=== PATIENT | male | born 1940 | race Caucasian/White ===

== ENCOUNTER 2016-12-02 08:08 | Inpatient (IN) | payer MEDICARE ==
[2016-12-02] VITALS (15 sets, daily range): BP systolic 93–173; BP diastolic 48–104; PULSE 64–135; RESP 16–20; TEMP 98.1–99.7; O2SAT 88–98
[~2016-12-02] VITALS: Ht 190.5 cm; Wt 71.7 kg
[~2016-12-02 08:08] MED LIST: ASPI81TA19; COUM3TAB PO; DOCU1CAP39 PO; FINA5TAB2 PO; FURO20TA PO; LORA-392 PO; METO25TA3 PO; MILKSUS PO; MULT-135 PO; PANT40TA3 PO; POTASSIUM PO; TAMS0.4C4 PO; VITATAB43 PO; ZANT150T2 PO; ZOCO40TA PO
--- NOTE | 2016-12-02 08:27 | PD ---
HPI Chief Complaint: shortness of breath Time Seen by Provider: 08:21 Travel History International Travel<30 days: No Contact w/Intl Traveler<30days: No Traveled to known affect area: No History of Present Illness HPI 76-year-old male with history of atrial fibrillation, CHF, CAD status post CABG , presents to the ER today because he has had 3 days history of coughing, shortness of breath, chest discomfort. He denies any fevers, vomiting, chest pains, or any other symptoms. He states that he thinks that he may be building up fluid again. He states symptoms worsens with exertion. He also states that he feels like his heart rate has been up. Modifying Factors: None Associated Signs & Symptoms: Coughing, shortness of breath, chest discomfort Risk Factors: A. fib PFSH Past Medical History Hx Anticoagulant Therapy: Yes Heart Rhythm Problems: Yes (Hx. Afib) Cancer: No Cardiovascular Problems: Yes High Cholesterol: Yes Diminished Hearing: No Endocrine: No Gastrointestinal Disorders: No Genitourinary: Yes (chronic prostatitis) Hypertension: Yes Immune Disorder: No Implanted Vascular Access Dvce: No Musculoskeletal: No Neurologic: No Psychiatric: No Reproductive: No Respiratory: Yes Past Surgical History Cardiac Surgery: Yes (CABG X2 & AVR) Coronary Artery Bypass Graft: Yes (DOUBLE) Oral Surgery: Yes (BONE GRAFT) Other Surgery: Yes Social History Alcohol Use: No Tobacco Use: No Substance Use: No Allergies-Medications (Allergen,Severity, Reaction): Coded Allergies: Codeine (Verified Adverse Reaction, Severe, N/V, 12/02/16) Reported Meds & Prescriptions Reported Meds & Active Scripts Active Metoprolol Tartrate 25 Mg Tab 25 Mg PO Q12HR Tamsulosin (Tamsulosin HCl) 0.4 Mg Cap 0.4 Mg PO HS Zocor (Simvastatin) 40 Mg Tab 40 Mg PO DAILY Ativan (Lorazepam) 0.5 Mg Tab 0.5 Mg PO TID PRN Furosemide 20 Mg Tab 20 Mg PO BID Pantoprazole (Pantoprazole Sodium) 40 Mg Tab 40 Mg PO DAILY@06 Milk of Magnesia Liq (Magnesium Hydroxide) 400 Mg/5 Ml Susp 30 Ml PO DAILY PRN Dok (Docusate Sodium) 100 Mg Cap 100 Mg PO BID Reported Probiotic (Lactobacillus Acidophilus) 1 Cap Cap 1 Cap PO DAILY Diltiazem (Diltiazem HCl) 30 Mg Tab 30 Mg PO TID Warfarin 4 Mg Tab 8 Mg PO DAILY Potassium Chloride ER (Potassium Chloride) 10 Meq Cap 10 Meq PO BID Buspirone (Buspirone HCl) 5 Mg Tab 5 Mg PO BID PRN Vitamin H88-[id number] Acid (Cobalamine Combinations) 500-400 Mcg Tab 1 Tab PO DAILY Finasteride 5 Mg Tab 5 Mg PO DAILY Do not crush. Aspir-Low (Aspirin) 81 Mg Tabdr Zantac (Ranitidine HCl) 150 Mg Tab 75 Mg PO BID Multi Vitamin (Multiple Vitamin) 1 Tab Tab 1 Tab PO DAILY Review of Systems Except as stated in HPI: all other systems reviewed are Neg Physical Exam Narrative GENERAL: Well-developed elderly white male in no acute distress at rest. Awake , alert, oriented 3. SKIN: Warm and dry. HEAD: Atraumatic. Normocephalic. EYES: Pupils equal and round. No scleral icterus. No injection or drainage. ENT: No nasal bleeding or discharge. Mucous membranes pink and moist. NECK: Trachea midline. No JVD. CARDIOVASCULAR: Fast and irregularly irregular. No rubs, murmurs, or gallops. RESPIRATORY: No accessory muscle use. Decreased at the bases with notable crackle to the right base. Breath sounds equal bilaterally. No wheezes. GASTROINTESTINAL: Abdomen soft, non-tender, nondistended. Hepatic and splenic margins not palpable. MUSCULOSKELETAL: No obvious deformities. No clubbing. No cyanosis.. Trace bilateral lower extremity edema. NEUROLOGICAL: Awake and alert. No obvious cranial nerve deficits. Motor grossly within normal limits. Normal speech. PSYCHIATRIC: Appropriate mood and affect; insight and judgment normal. Data Data Last Documented VS Vital Signs Date Time Temp Pulse Resp B/P Pulse Ox O2 Delivery O2 Flow Rate FiO2 12/02/16 09:30 128 16 173/85 95 Nasal Cannula 2 12/02/16 08:27 98.1 Orders Complete Blood Count With Diff (12/02/16 08:21) Comprehensive Metabolic Panel (12/02/16 08:21) B-Type Natriuretic Peptide (12/02/16 08:21) Act Partial Throm Time (Ptt) (12/02/16 08:21) Prothrombin Time / Inr (Pt) (12/02/16 08:21) Ckmb (Isoenzyme) Profile (12/02/16 08:21) Troponin I (12/02/16 08:21) Iv Access Insert/Monitor (12/02/16 08:21) Ecg Monitoring (12/02/16 08:21) Oximetry (12/02/16 08:21) Oxygen Administration (12/02/16 08:21) Chest, Single Ap (12/02/16 08:21) Sodium Chloride 0.9% Flush (Ns Flush) (12/02/16 08:30) Diltiazem Inj (Cardizem Inj) (12/02/16 08:30) Diltiazem Inj (Cardizem Inj) (12/02/16 08:30) Sodium Chloride 0.9% Flush (Ns Flush) (12/02/16 08:30) CKMB (12/02/16 08:25) CKMB% (12/02/16 08:25) Furosemide Inj (Lasix Inj) (12/02/16 09:00) Labs Laboratory Tests Test 12/02/16 08:25 White Blood Count 7.0 TH/MM3 Red Blood Count 4.51 MIL/MM3 Hemoglobin 12.6 GM/DL Hematocrit 37.5 % Mean Corpuscular Volume 83.2 FL Mean Corpuscular Hemoglobin 28.0 PG Mean Corpuscular Hemoglobin 33.6 % Concent Red Cell Distribution Width 14.6 % Platelet Count 274 TH/MM3 Mean Platelet Volume 6.5 FL Neutrophils (%) (Auto) 66.1 % Lymphocytes (%) (Auto) 15.5 % Monocytes (%) (Auto) 13.2 % Eosinophils (%) (Auto) 5.0 % Basophils (%) (Auto) 0.2 % Neutrophils # (Auto) 4.6 TH/MM3 Lymphocytes # (Auto) 1.1 TH/MM3 Monocytes # (Auto) 0.9 TH/MM3 Eosinophils # (Auto) 0.4 TH/MM3 Basophils # (Auto) 0.0 TH/MM3 CBC Comment DIFF FINAL Differential Comment Prothrombin Time 27.7 SEC Prothromb Time International 2.4 RATIO Ratio Activated Partial 42.9 SEC Thromboplast Time Sodium Level 128 MEQ/L Potassium Level 3.5 MEQ/L Chloride Level 88 MEQ/L Carbon Dioxide Level 30.3 MEQ/L Anion Gap 10 MEQ/L Blood Urea Nitrogen 11 MG/DL Creatinine 0.80 MG/DL Estimat Glomerular Filtration 94 ML/MIN Rate Random Glucose 123 MG/DL Calcium Level 8.8 MG/DL Total Bilirubin 0.6 MG/DL Aspartate Amino Transf 35 U/L (AST/SGOT) Alanine Aminotransferase 27 U/L (ALT/SGPT) Alkaline Phosphatase 131 U/L Total Creatine Kinase 170 U/L Creatine Kinase MB 3.8 NG/ML Troponin I 0.02 NG/ML B-Type Natriuretic Peptide 335 PG/ML Total Protein 8.7 GM/DL Albumin 3.4 GM/DL MDM Medical Decision Making Medical Screen Exam Complete: Yes Emergency Medical Condition: Yes Medical Record Reviewed: Yes Interpretation(s) EKG shows A. fib with rapid ventricular response at a rate of 136 bpm. Laboratory Tests Test 12/02/16 08:25 Hemoglobin 12.6 GM/DL (13.0-17.0) Hematocrit 37.5 % (39.0-51.0) Mean Platelet Volume 6.5 FL (7.0-11.0) Monocytes (%) (Auto) 13.2 % (0.0-8.0) Eosinophils (%) (Auto) 5.0 % (0.0-4.0) Prothrombin Time 27.7 SEC (9.8-11.6) Activated Partial 42.9 SEC Thromboplast Time (24.3-30.1) Sodium Level 128 MEQ/L (136-145) Chloride Level 88 MEQ/L (98-107) Random Glucose 123 MG/DL (74-106) Alkaline Phosphatase 131 U/L (45-117) Creatine Kinase MB 3.8 NG/ML (0.5-3.6) B-Type Natriuretic Peptide 335 PG/ML (0-100) Total Protein 8.7 GM/DL (6.4-8.2) Differential Diagnosis Cough, shortness of breath, chest discomfortdysrhythmias versus ACS versus CHF versus metabolic issues versus dehydration versus pneumonia Narrative Course BNP is elevated. Chest x-ray shows left-sided pleural effusions. Patient was given Lasix in the ER for underlying CHF. His heart rate is in the 140s in the ER and Cardizem IV bolus with drip was given in the ER for better rate control. His heart rate went down to the 100s initially. However, when he tried to get up, his heart rate went back up into the 140s. At this point, patient states that Dr. Wright who is his ibm bpm developer has been trying to break control him and has changes medication several times over the last few weeks. Considering he is more symptomatic now, My plan would be to admit him for further treatment of his CHF, pleural effusion, and A. fib with RVR. Case is discussed with Dr. King for admission. Diagnosis Primary Impression: Atrial fibrillation with RVR Additional Impression: CHF (congestive heart failure) Admitting Information Admitting Physician Requests: Admit Esteban Borges MD Dec 02, 2016 08:27
[2016-12-02] MEDS ORDERED: DILTIAZEM HCL 25 MG/5 ML VIAL IV PUSH ONE (08:30)
[2016-12-02] MEDS ORDERED: SODIUM CHLORIDE 0.9% FLUSH 5 ML FLUSH IVF PRN (08:30)
[2016-12-02 08:35] LABS: AUTOMATED NEUTROPHIL # 4.6 TH/MM3 (1.8-7.7); BASOPHIL % 0.2 % (0.0-2.0); EOSINOPHIL # 0.4 TH/MM3 (0-0.4); HEMATOCRIT 37.5 % (39.0-51.0); HEMO FLAGS DIFF FINAL; LYMPH % 15.5 % (9.0-44.0); LYMPHOCYTE # 1.1 TH/MM3 (1.0-4.8); MEAN CELL VOLUME 83.2 FL (80.0-100.0); MEAN CORPUSCULAR HGB CONC 33.6 % (32.0-36.0); MONO % 13.2 % (0.0-8.0); NEUT % 66.1 % (16.0-70.0); PLATELET COUNT 274 TH/MM3 (150-450); RED BLOOD COUNT 4.51 MIL/MM3 (4.50-5.90); RED CELL DISTRIBUTION WIDTH 14.6 % (11.6-17.2)
[2016-12-02 08:44] LABS: CHLORIDE 88 MEQ/L (98-107); POTASSIUM 3.5 MEQ/L (3.5-5.1); SODIUM (NA) 128 MEQ/L (136-145)
[2016-12-02 08:48] LABS: ANION GAP 10 MEQ/L (5-15); BICARBONATE 30.3 MEQ/L (21.0-32.0); BLOOD UREA NITROGEN 11 MG/DL (7-18)
[2016-12-02] MEDS: SODIUM CHLORIDE 0.9% FLUSH 5 ML FLUSH IVF PRN ×2 (08:48→09:16)
[2016-12-02 08:49] LABS: APTT (PATIENT) 42.9 SEC (24.3-30.1); INTERNATIONAL NORMALIZED RATIO 2.4 RATIO; PROTHROMBIN TIME - PATIENT 27.7 SEC (9.8-11.6)
[2016-12-02 08:51] LABS: ALT (GPT) 27 U/L (12-78); AST (GOT) 35 U/L (15-37); GLOMERULAR FILTRATION RATE 94 ML/MIN (>89)
[2016-12-02 08:53] LABS: TOTAL BILIRUBIN ADULT 0.6 MG/DL (0.2-1.0)
[2016-12-02 08:54] LABS: ALKALINE PHOSPHATASE 131 U/L (45-117); CREATINE KINASE 170 U/L (39-308)
[2016-12-02] MEDS ORDERED: FUROSEMIDE 40 MG/4 ML VIAL IV PUSH ONE (09:00)
[2016-12-02] MEDS ORDERED: DILT30TA PO (09:06)
[2016-12-02] MEDS ORDERED: BUSP5TAB PO (09:06)
[2016-12-02] MEDS ORDERED: WARF-20 PO (09:06)
[2016-12-02] MEDS ORDERED: POTA10CA PO (09:06)
[2016-12-02 09:07] LABS: CKMB 3.8 NG/ML (0.5-3.6)
--- NOTE | 2016-12-02 09:07 | RADHPO ---
EXAM DATE/TIME: 12/02/2016 08:39 [facility] COMPARISON: CT THORAX W/O CONTRAST, September 12, 2016, 11:05. CHEST SINGLE AP, September 14, 2016, 4:41. INDICATIONS : Short of breath, cough, fever MEDICAL HISTORY : Myocardial infarction. SURGICAL HISTORY : CABG. ENCOUNTER: Initial ACUITY: 4 - 6 days PAIN SCORE: 0/10 LOCATION: Bilateral chest FINDINGS: The patient is status post sternotomy. The heart size is normal. There is increased density at the le ft upper lung and at the left base. The right lung is clear. There is a mild left effusion. CONCLUSION: Patchy areas of consolidation or atelectasis in the left upper lung and left lower lung with a mild l eft effusion. Robert Salinas MD on December 02, 2016 at 9:03 Board Certified Radiologist. This report was verified electronically.
[2016-12-02] MEDS ORDERED: LACTCAP8 PO (09:08)
[2016-12-02] MEDS: DILTIAZEM INJ 125 MG in SODIUM CHLORIDE 0.9% INJ 100 ML IV SCH ×2 (09:11→16:39)
[2016-12-02] MEDS ORDERED: busPIRone HCL 5 MG TAB PO PRN (10:30)
[2016-12-02] MEDS ORDERED: SODIUM CHLORIDE 0.9% FLUSH 5 ML FLUSH FLUSH PRN (10:30)
--- NOTE | 2016-12-02 17:52 | HHI.HP ---
HPI Service [facility] Hospitalists Primary Care Physician Liane Andino MD Admission Diagnosis CHF exacerbation/A. fib with RVR Diagnoses: Chief Complaint: Shortness of breath Weight gain Palpitations Travel History International Travel<30 Days: No Contact w/Intl Traveler <30 Da: No Traveled to Known Affected Are: No History of Present Illness This is a 76-year-old male medical history significant for coronary artery disease status post previous CABG and aortic valve replacement, hypertension, CHF and atrial fibrillation who presents to [facility] ED with complaints of worsening shortness of breath and cough 3 days. Patient denies any complaints of fever, chills, nausea, vomiting, chest pain or abdominal pain. He denies any hematuria or dysuria. He denies any hematochezia or melena. He does report 3 pound weight gain over the past several days. He admits that he' s had a very difficult time controlling his heart rate ever since he had his open heart surgery and was recently started on diltiazem 30 mg 3 times a day in addition to his previously prescribed metoprolol. He does complain of palpitations. States that his shortness of breath is worse with activity. He' s been taking the Lasix every 3 days as instructed by his physician. Review of Systems Constitutional: COMPLAINS OF: Weight gain (3 pounds in the last 2-3 days), DENIES: Diaphoretic episodes, Fever, Chills Endocrine: DENIES: Polydipsia Eyes: DENIES: Blurred vision, Eye pain Ears, nose, mouth, throat: DENIES: Throat pain, Ear Pain, Running Nose Respiratory: COMPLAINS OF: Cough (as stated in history of present illness), Shortness of breath (3 days), DENIES: Hemoptysis, Sputum production Cardiovascular: COMPLAINS OF: Palpitations, Dyspnea on Exertion, DENIES: Chest pain, Lower Extremity Edema Gastrointestinal: DENIES: Abdominal pain, Black stools, Diarrhea, Nausea, Vomiting Genitourinary: DENIES: Hematuria, Dysuria Musculoskeletal: DENIES: Joint Swelling, Back pain, Neck pain Integumentary: DENIES: Pruritus, Rash Hematologic/lymphatic: DENIES: Bruising, Lymphadenopathy Immunologic/allergic: DENIES: Urticaria Neurologic: DENIES: Headache, Localized weakness, Paresthesias, Seizures, Speech Problems Psychiatric: DENIES: Confusion, Mood changes, Depression Past Family Social History Past Medical History Coronary artery disease, status post CABG Hypertension Atrial fibrillation BPH Dyslipidemia CHF GERD Past Surgical History CABG Reported Medications Metoprolol Tartrate 25 Mg Tab 25 Mg PO Q12HR Tamsulosin (Tamsulosin HCl) 0.4 Mg Cap 0.4 Mg PO HS Zocor (Simvastatin) 40 Mg Tab 40 Mg PO DAILY Ativan (Lorazepam) 0.5 Mg Tab 0.5 Mg PO TID PRN Furosemide 20 Mg Tab 20 Mg PO BID Pantoprazole (Pantoprazole Sodium) 40 Mg Tab 40 Mg PO DAILY@06 Milk of Magnesia Liq (Magnesium Hydroxide) 400 Mg/5 Ml Susp 30 Ml PO DAILY PRN Dok (Docusate Sodium) 100 Mg Cap 100 Mg PO BID Probiotic (Lactobacillus Acidophilus) 1 Cap Cap 1 Cap PO DAILY Diltiazem (Diltiazem HCl) 30 Mg Tab 30 Mg PO TID Warfarin 4 Mg Tab 8 Mg PO DAILY Potassium Chloride ER (Potassium Chloride) 10 Meq Cap 10 Meq PO BID Buspirone (Buspirone HCl) 5 Mg Tab 5 Mg PO BID PRN Vitamin F66-Kodlz Acid (Cobalamine Combinations) 500-400 Mcg Tab 1 Tab PO DAILY Finasteride 5 Mg Tab 5 Mg PO DAILY Do not crush. Aspir-Low (Aspirin) 81 Mg Tabdr Zantac (Ranitidine HCl) 150 Mg Tab 75 Mg PO BID Multi Vitamin (Multiple Vitamin) 1 Tab Tab 1 Tab PO DAILY Allergies: Coded Allergies: Codeine (Verified Adverse Reaction, Severe, N/V, 12/02/16) Active Ordered Medications Current Medications Medications (Trade) Dose Ordered Sig/Serg Route Start Time Stop Time Status Last Admin (Cardizem Inj/NS Inj) 125 ml @ 0 mls/hr TITRATE IV 12/02/16 08:30 12/02/16 16:39 (NS Flush) 2 ml UNSCH PRN FLUSH 12/02/16 10:30 (NS Flush) 2 ml BID FLUSH 12/02/16 21:00 (Buspar) 5 mg BID PRN PO 12/02/16 10:30 (Proscar) 5 mg DAILY PO 12/03/16 09:00 (Protonix) 40 mg DAILY@06 PO 12/03/16 06:00 (KCl) 10 meq BID PO 12/02/16 21:00 (Flomax) 0.4 mg HS PO 12/02/16 21:00 (Coumadin) 8 mg DAILY@1600 PO 12/03/16 16:00 (Pravachol) 80 mg DAILY PO 12/03/16 09:00 (Cardizem) 60 mg QID PO 12/02/16 18:00 (Lopressor) 25 mg Q12HR PO 12/02/16 21:00 Family History Patient reports a strong family history of heart disease and DM Brother x 2 and sister with previous stents and/or CABG Social History Patient denies any tobacco use, ETOH consumption or illicit drug use. Physical Exam Vital Signs Vital Signs Date Time Temp Pulse Resp B/P Pulse Ox O2 Delivery O2 Flow Rate FiO2 12/02/16 15:00 99.7 94 16 122/68 95 Nasal Cannula 2 12/02/16 11:45 98 16 108/89 96 12/02/16 10:40 126 16 160/86 95 12/02/16 09:30 128 16 173/85 95 Nasal Cannula 2 12/02/16 08:30 128 16 137/96 98 Nasal Cannula 2 12/02/16 08:27 98.1 135 20 155/104 94 12/02/16 08:13 127 16 94 Nasal Cannula 2 12/02/16 08:13 88 12/02/16 08:13 88 Nasal Cannula 2 Physical Exam GENERAL: This is a well-nourished, well-developed patient, in no apparent distress. SKIN: No rashes, ecchymoses or lesions. Cool and dry. HEAD: Atraumatic. Normocephalic. No temporal or scalp tenderness. EYES: Pupils equal round and reactive. Extraocular motions intact. No scleral icterus. No injection or drainage. ENT: Nose without bleeding, purulent drainage or septal hematoma. Throat without erythema, tonsillar hypertrophy or exudate. Uvula midline. Airway patent. NECK: Trachea midline. No JVD or lymphadenopathy. Supple, nontender, no meningeal signs. CARDIOVASCULAR: Irregularly irregular without murmurs, gallops, or rubs. RESPIRATORY: Clear to auscultation. Breath sounds equal bilaterally. No wheezes , rales, or rhonchi. GASTROINTESTINAL: Abdomen soft, non-tender, nondistended. No hepato-splenomegaly , or palpable masses. No guarding. MUSCULOSKELETAL: Extremities without clubbing, cyanosis, or edema. No joint tenderness, effusion, or edema noted. No calf tenderness. NEUROLOGICAL: Awake and alert. Cranial nerves II through XII intact. Motor and sensory grossly within normal limits. Five out of 5 muscle strength in all muscle groups. Normal speech. Laboratory Laboratory Tests Test 12/02/16 08:25 White Blood Count 7.0 Red Blood Count 4.51 Hemoglobin 12.6 Hematocrit 37.5 Mean Corpuscular Volume 83.2 Mean Corpuscular Hemoglobin 28.0 Mean Corpuscular Hemoglobin 33.6 Concent Red Cell Distribution Width 14.6 Platelet Count 274 Mean Platelet Volume 6.5 Neutrophils (%) (Auto) 66.1 Lymphocytes (%) (Auto) 15.5 Monocytes (%) (Auto) 13.2 Eosinophils (%) (Auto) 5.0 Basophils (%) (Auto) 0.2 Neutrophils # (Auto) 4.6 Lymphocytes # (Auto) 1.1 Monocytes # (Auto) 0.9 Eosinophils # (Auto) 0.4 Basophils # (Auto) 0.0 CBC Comment DIFF FINAL Differential Comment Prothrombin Time 27.7 Prothromb Time International 2.4 Ratio Activated Partial 42.9 Thromboplast Time Sodium Level 128 Potassium Level 3.5 Chloride Level 88 Carbon Dioxide Level 30.3 Anion Gap 10 Blood Urea Nitrogen 11 Creatinine 0.80 Estimat Glomerular Filtration 94 Rate Random Glucose 123 Calcium Level 8.8 Total Bilirubin 0.6 Aspartate Amino Transf 35 (AST/SGOT) Alanine Aminotransferase 27 (ALT/SGPT) Alkaline Phosphatase 131 Total Creatine Kinase 170 Creatine Kinase MB 3.8 Troponin I 0.02 B-Type Natriuretic Peptide 335 Total Protein 8.7 Albumin 3.4 Result Diagram: 12/02/1682412/02/16824 Assessment and Plan Assessment and Plan 76-year-old male medical history significant for coronary artery disease status post previous CABG and aortic valve replacement, hypertension, CHF and atrial fibrillation who presents to [facility] ED with complaints of worsening shortness of breath and cough 3 days. Atrial fibrillation with RVR - Patient will be admitted - Continue on Cardizem drip - Rate controlled at present. Continue to monitor heart rate - Cardiology consultation - Monitor on telemetry - Resume warfarin CHF exacerbation - Continue with diuresis - Chest x-ray personally interpreted, patchy areas of consolidation left, small left pleural effusion - Strict I&O's - Daily weights - Monitor electrolytes Hyponatremia - Secondary to above - A.m. labs to monitor BPH - Resume home finasteride and tamsulosin Dyslipidemia - We'll resume home statin Anemia - Mild - Above patient's baseline DVT prophylaxis - On warfarin Written by Mónica Avila PA-C acting as scribe for Dr. King on 12/02/16 at 17:46. Physician Certification 2 Midnight Certification Type: Admission for Inpatient Services Order for Inpatient Services The services are ordered in accordance with Medicare regulations or non- Medicare payer requirements, as applicable. In the case of services not specified as inpatient-only, they are appropriately provided as inpatient services in accordance with the 2-midnight benchmark. Estimated LOS (days): 3 3 days is the estimated time the patient will need to remain in the hospital, assuming treatment plan goals are met and no additional complications. Post-Hospital Plan: Home Medical Decision Making Impression and Plan The exam, history, and the medical decision-making described in the above note were completed with my assistance as the dictating practitioner. I attest that I had a [id number] encounter with the patient on the same day, and personally performed all of the history, exam, or medical decision making. I reviewed and agree with the plan. Mónica Avila Dec 02, 2016 17:51 Dali King MD Dec 02, 2016 18:00
[2016-12-02] MEDS: DILTIAZEM HCL 60 MG TAB PO SCH ×2 (18:20→21:00)
--- NOTE | 2016-12-02 19:46 | MB ---
cc: CUCO KOWALSKI MD DATE OF CONSULTATION 12/02/2016 REASON FOR CONSULTATION Atrial fibrillation and shortness of breath. HISTORY OF PRESENT ILLNESS The patient is a pleasant 76-year-old gentleman who sees my partner Dr. Wright for a history of coronary artery disease status post recent coronary artery bypass graft with AVR as well as atrial fibrillation. The patient was doing well until several days ago when he began having worsening shortness of breath on exertion as well as some minor lower extremity edema. He presented to the emergency department in rapid atrial fibrillation although he has not taken any of his medications from this morning. He is already feeling better. He has some residual shortness breath though much better than on admission. No chest pain other than residual sternal chest tenderness from the surgery. No lightheadedness, dizziness or syncope. PAST MEDICAL HISTORY 1. Coronary artery disease as above. 2. Atrial fibrillation. 3. Aortic valve replacement. 4. Hypertension. 5. Hyperlipidemia. 6. Benign prostatic hypertrophy. 7. Prior tobacco use. CURRENT MEDICATIONS 1. Warfarin. 2. Finasteride 5 mg daily. 3. Pravachol 80 mg daily. 4. Cardizem drip. His home metoprolol and Cardizem have not been restarted. PHYSICAL EXAMINATION VITAL SIGNS: Temperature 99.7, pulse 94, respiratory rate 60, BP 122/68, sating 95 on 2 liters. GENERAL: Pleasant, well-appearing gentleman in no distress. NECK: No JVD. LUNGS: Clear to auscultation bilaterally. CARDIOVASCULAR: Irregularly irregular rhythm with a regular rate. No murmurs appreciated. ABDOMEN: Benign. EXTREMITIES: No edema. LABORATORY DATA Sodium 128, potassium 2.5, chloride 88, bicarb 30.3, BUN 11, creatinine 0.8, glucose 123. INR is 2.4. BNP is 335. Troponin is negative x1. EKG shows atrial fibrillation at a rate of 136 with right bundle-branch block, occasional PVCs and nonspecific ST changes. Current telemetry shows rate of 100. IMAGING Chest x-ray showed patchy areas of consolidation or atelectasis in the left upper lung and left lower lung with mild left effusion. IMPRESSION Rapid atrial fibrillation. The patient seems to have mild CHF due to have rapid atrial fibrillation. He has gotten one dose of IV Lasix and seems to be breathing pretty close to his baseline. He does have COPD type breathing and I asked him if he has this diagnosis but he denied it. PFTs may be useful at some point. I will restart his home oral medications and hope to get his rate better controlled off the Cardizem drip. I will slightly increase his Cardizem. Thank you again for the opportunity to participate in this patient's care. MD ADONAY Chan/FREDI /3:37 PM /6:31 PM
[2016-12-02] MEDS: METOPROLOL TARTRATE 25 MG TAB PO SCH (20:52)
[2016-12-02] MEDS: TAMSULOSIN HCL 0.4 MG CAP PO SCH (20:52)
[2016-12-02] MEDS: SODIUM CHLORIDE 0.9% FLUSH 5 ML FLUSH FLUSH SCH (20:52)
[2016-12-02] MEDS: POTASSIUM CHLORIDE 10 MEQ CONTROLLED RELEASE TAB PO SCH (20:52)
[2016-12-02] MEDS ORDERED: RANITIDINE HCL 150 MG TAB PO SCH (21:00)
[2016-12-02] MEDS ORDERED: SODIUM CHLOR 0.9% 250 ML INJ 250 ML IV ONE (22:00)
[2016-12-03] VITALS (11 sets, daily range): BP systolic 85–154; BP diastolic 56–78; PULSE 75–106; RESP 16–22; TEMP 97.6–99.4; O2SAT 92–96
[2016-12-03] MEDS: PANTOPRAZOLE SOD 40 MG DELAYED RELEASE TAB PO SCH (05:29)
[2016-12-03 07:26] LABS: AUTOMATED NEUTROPHIL # 4.1 TH/MM3 (1.8-7.7); BASOPHIL % 0.3 % (0.0-2.0); EOSINOPHIL # 0.3 TH/MM3 (0-0.4); EOSINOPHIL % 4.5 % (0.0-4.0); HEMO FLAGS DIFF FINAL; LYMPHOCYTE # 1.2 TH/MM3 (1.0-4.8); MEAN CELL VOLUME 82.1 FL (80.0-100.0); MEAN CORPUSCULAR HEMOGLOBIN 28.3 PG (27.0-34.0); MEAN CORPUSCULAR HGB CONC 34.4 % (32.0-36.0); NEUT % 63.2 % (16.0-70.0); PLATELET COUNT 226 TH/MM3 (150-450); RED BLOOD COUNT 3.65 MIL/MM3 (4.50-5.90); RED CELL DISTRIBUTION WIDTH 15.6 % (11.6-17.2); WHITE BLOOD COUNT 6.5 TH/MM3 (4.0-11.0)
[2016-12-03 07:45] LABS: BICARBONATE 29.4 MEQ/L (21.0-32.0); POTASSIUM 3.6 MEQ/L (3.5-5.1)
[2016-12-03] MEDS: DILTIAZEM HCL 60 MG TAB PO SCH ×4 (08:14→20:53)
[2016-12-03] MEDS: METOPROLOL TARTRATE 25 MG TAB PO SCH (08:14)
[2016-12-03] MEDS: FINASTERIDE 5 MG TAB PO SCH (08:14)
[2016-12-03] MEDS: PRAVASTATIN SOD 80 MG TAB PO SCH (08:15)
[2016-12-03] MEDS: POTASSIUM CHLORIDE 10 MEQ CONTROLLED RELEASE TAB PO SCH ×2 (08:15→20:51)
[2016-12-03] MEDS: SODIUM CHLORIDE 0.9% FLUSH 5 ML FLUSH FLUSH SCH ×2 (08:16→20:52)
--- NOTE | 2016-12-03 08:39 | HHI.PR ---
Subjective Remarks This is a pleasant 76 y/o Male with CAD status post CABG and Aortic Valve replacement, Hypertension, CHF and Atrial Fibrillation complaint of worsening shortness of breath and cough x 3 days, denies any complaints of fever, chills, nausea, vomit, chest pain abdominal pain, reported 3 pound weight gain over the past several days, difficulty to control his heart rate, since heart surgery was started on Diltiazem 30 mg TID in addition to Metoprolol, has also BPH, Hyperlipidemia, CHF, GERD. was continued Statin medicine, Lasix and Potassium replacement. Patient seen in his bedroom in the presence of his Mrs. Veronika Vazquez followed by payer specialist Doctor Fito Steel Appreciated Specialist Assistance, The patient has Lip breathing proper for COPD/Emphysema asked for sales product specialist consult, With Diagnosis of Atrial Fibrillation, NSVT, gave more for COPD. Objective Vital Signs Date Time Temp Pulse Resp B/P Pulse Ox O2 Delivery O2 Flow Rate FiO2 12/03/16 04:00 98.7 98 18 128/69 94 12/03/16 04:00 Nasal Cannula 2.00 12/03/16 01:00 99.4 82 20 111/62 94 12/03/16 01:00 Nasal Cannula 2.00 12/03/16 01:00 75 12/03/16 00:22 Nasal Cannula 2.00 12/03/16 00:05 99.2 87 22 117/65 95 12/03/16 00:05 Nasal Cannula 2.00 12/02/16 22:30 98.7 64 20 102/59 95 Nasal Cannula 2 12/02/16 21:40 70 20 93/48 96 Nasal Cannula 2 12/02/16 21:40 96 Nasal Cannula 2.00 12/02/16 21:00 86 20 127/60 96 Nasal Cannula 2 12/02/16 20:50 89 20 141/64 95 Nasal Cannula 2 12/02/16 20:05 83 20 116/64 95 Nasal Cannula 2 12/02/16 19:30 88 20 97 Nasal Cannula 2 12/02/16 19:05 98.9 90 20 144/63 97 Nasal Cannula 2 12/02/16 19:05 20 97 Nasal Cannula 2 12/02/16 18:15 89 16 147/79 95 Nasal Cannula 2 12/02/16 15:00 99.7 94 16 122/68 95 Nasal Cannula 2 12/02/16 11:45 98 16 108/89 96 12/02/16 10:40 126 16 160/86 95 12/02/16 09:30 128 16 173/85 95 Nasal Cannula 2 I/O 12/02/16 12/02/16 12/02/16 12/03/16 12/03/16 12/03/16 07:00 15:00 23:00 07:00 15:00 23:00 Intake Total 430 ml Output Total 1390 ml Balance -1390 ml 430 ml Intake Oral 180 ml IV Total 250 ml Output Urine Total 1390 ml # Voids 1 1 1 # Bowel Movements 0 Result Diagram: 12/03/16 0655 12/03/16 0655 Imaging Last Impressions Chest X-Ray 12/02/16820 Signed Impressions: Service Date/Time: Friday, December 02, 2016 08:39 - CONCLUSION: Patchy areas of consolidation or atelectasis in the left upper lung and left lower lung with a mild left effusion. Robert Salinas MD Procedures No procedures performed Other Results Laboratory Tests Test 12/02/16 12/03/16 08:25 06:55 Prothrombin Time 27.7 SEC Prothromb Time International 2.4 RATIO Ratio Activated Partial 42.9 SEC Thromboplast Time Total Bilirubin 0.6 MG/DL Aspartate Amino Transf 35 U/L (AST/SGOT) Alanine Aminotransferase 27 U/L (ALT/SGPT) Alkaline Phosphatase 131 U/L Total Creatine Kinase 170 U/L Creatine Kinase MB 3.8 NG/ML Troponin I 0.02 NG/ML B-Type Natriuretic Peptide 335 PG/ML Total Protein 8.7 GM/DL Albumin 3.4 GM/DL White Blood Count 6.5 TH/MM3 Red Blood Count 3.65 MIL/MM3 Hemoglobin 10.3 GM/DL Hematocrit 30.0 % Mean Corpuscular Volume 82.1 FL Mean Corpuscular Hemoglobin 28.3 PG Mean Corpuscular Hemoglobin 34.4 % Concent Red Cell Distribution Width 15.6 % Platelet Count 226 TH/MM3 Mean Platelet Volume 6.6 FL Neutrophils (%) (Auto) 63.2 % Lymphocytes (%) (Auto) 18.0 % Monocytes (%) (Auto) 14.0 % Eosinophils (%) (Auto) 4.5 % Basophils (%) (Auto) 0.3 % Neutrophils # (Auto) 4.1 TH/MM3 Lymphocytes # (Auto) 1.2 TH/MM3 Monocytes # (Auto) 0.9 TH/MM3 Eosinophils # (Auto) 0.3 TH/MM3 Basophils # (Auto) 0.0 TH/MM3 CBC Comment DIFF FINAL Differential Comment Sodium Level 129 MEQ/L Potassium Level 3.6 MEQ/L Chloride Level 89 MEQ/L Carbon Dioxide Level 29.4 MEQ/L Anion Gap 11 MEQ/L Blood Urea Nitrogen 12 MG/DL Creatinine 0.69 MG/DL Estimat Glomerular Filtration 111 ML/MIN Rate Random Glucose 99 MG/DL Calcium Level 8.3 MG/DL Objective Remarks GENERAL: Alert and Oriented, in Moderate Respiratory Distress, Lip Breathing SKIN: No rashes, ecchymoses or lesions. Cool and dry. HEAD: Atraumatic. Normocephalic. No temporal or scalp tenderness. EYES: Pupils equal round and reactive. Extraocular motions intact. No scleral icterus. No injection or drainage. ENT: Nose without bleeding, purulent drainage or septal hematoma. Throat without erythema, tonsillar hypertrophy or exudate. Uvula midline. Airway patent. NECK: Trachea midline. No JVD or lymphadenopathy. Supple, nontender, no meningeal signs. CARDIOVASCULAR: Irregularly irregular without murmurs, gallops, or rubs. RESPIRATORY: Severe Decreased breath sounds bilateral, no wheezing or crackles. GASTROINTESTINAL: Abdomen soft, non-tender, nondistended. No hepato-splenomegaly , or palpable masses. No guarding. MUSCULOSKELETAL: Extremities without clubbing, cyanosis, or edema. NEUROLOGICAL: Awake and alert. Cranial nerves II through XII intact. Medications and IVs Current Medications Medications (Trade) Dose Ordered Sig/Serg Route Start Time Stop Time Status Last Admin (Cardizem Inj/NS Inj) 125 ml @ 0 mls/hr TITRATE IV 12/02/16 08:30 12/02/16 16:39 (NS Flush) 2 ml UNSCH PRN FLUSH 12/02/16 10:30 (NS Flush) 2 ml BID FLUSH 12/02/16 21:00 12/03/16 08:16 (Buspar) 5 mg BID PRN PO 12/02/16 10:30 (Proscar) 5 mg DAILY PO 12/03/16 09:00 12/03/16 08:14 (Protonix) 40 mg DAILY@06 PO 12/03/16 06:00 12/03/16 05:29 (KCl) 10 meq BID PO 12/02/16 21:00 12/03/16 08:15 (Flomax) 0.4 mg HS PO 12/02/16 21:00 12/02/16 20:52 (Coumadin) 8 mg DAILY@1600 PO 12/03/16 16:00 (Pravachol) 80 mg DAILY PO 12/03/16 09:00 12/03/16 08:15 (Cardizem) 60 mg QID PO 12/02/16 18:00 12/03/16 08:14 (Lopressor) 25 mg Q12HR PO 12/02/16 21:00 12/03/16 08:14 A/P Assessment and Plan 1. Atrial fibrillation with RVR, admitted and started on Cardizem drip, rate controlled, re started Warfarin, EKG showed Atrial Fibrillation at a rate of 136 with right bundle branch block, occasional PVC, Imaging studies showed Patchy areas of consolidation or atelectasis in the left upper lung and left lower lung with mild left effusion, Seen by payer specialist, Given Furosemide IV for mild CHF, patient has COPD/Emphysema asked for sales product specialist consult. No clear CHF. 2. COPD/Emphysema optimized respiratory management and asked for sales product specialist consult by payer specialist 3. Community Acquired Pneumonia as per patient his in the room states the patient had sudden onset of his Symptomatology, even he has COPD that is not been diagnosed yet as per patient, he became short of breath for the last four days, not totally explained by his CHF will optimize his respiratory medicines Ipratropium [place], Budesonide Nebulized, Incentive spirometry, Mucolytic, added antibiotics Cefepime and Azithromycin and follow clinically his Laboratory do not demonstrate acute infectious process. but his CXR is abnormal. will follow specialist recommendations. 4. Hyponatremia secondary to #1 and 2 continue Monitoring. 5. BPH resume home Finasteride and Tamsulosin 6. Hyperlipidemia on Home statins 7. Anemia at baseline DVT prophylaxis - On warfarin therapeutic INR. following. Discharge Planning Expected in the next one to two days. Cristobal Ramirez MD Dec 03, 2016 08:39 Fito Steel MD Dec 03, 2016 10:03 Cristobal Ramirez MD Dec 03, 2016 08:39
--- NOTE | 2016-12-03 10:03 | PD.CARD.PN ---
Subjective Subjective Remarks Improving rates, still somewhat sob. Objective Medications Administered Medications Medications (Trade) Dose Ordered Sig/Serg Route PRN Reason Start Time Stop Time Status Last Admin Dose Admin Diltiazem HCl/ Sodium Chloride (Cardizem Inj/NS Inj) 125 ml @ 0 mls/hr TITRATE IV 12/02/16 08:30 12/02/16 16:39 IV Flush (NS Flush) 2 ml BID FLUSH 12/02/16 21:00 12/03/16 08:16 Finasteride (Proscar) 5 mg DAILY PO 12/03/16 09:00 12/03/16 08:14 Pantoprazole Sodium (Protonix) 40 mg DAILY@06 PO 12/03/16 06:00 12/03/16 05:29 Potassium Chloride (KCl) 10 meq BID PO 12/02/16 21:00 12/03/16 08:15 Tamsulosin HCl (Flomax) 0.4 mg HS PO 12/02/16 21:00 12/02/16 20:52 Pravastatin Sodium (Pravachol) 80 mg DAILY PO 12/03/16 09:00 12/03/16 08:15 Diltiazem HCl (Cardizem) 60 mg QID PO 12/02/16 18:00 12/03/16 08:14 Metoprolol Tartrate (Lopressor) 25 mg Q12HR PO 12/02/16 21:00 12/03/16 08:14 Vital Signs / I&O Vital Signs Date Time Temp Pulse Resp B/P Pulse Ox O2 Delivery O2 Flow Rate FiO2 12/03/16 08:33 97.6 106 20 154/78 95 12/03/16 08:00 106 12/03/16 04:00 98.7 98 18 128/69 94 12/03/16 04:00 Nasal Cannula 2.00 12/03/16 01:00 99.4 82 20 111/62 94 12/03/16 01:00 Nasal Cannula 2.00 12/03/16 01:00 75 12/03/16 00:22 Nasal Cannula 2.00 12/03/16 00:05 99.2 87 22 117/65 95 12/03/16 00:05 Nasal Cannula 2.00 12/02/16 22:30 98.7 64 20 102/59 95 Nasal Cannula 2 12/02/16 21:40 70 20 93/48 96 Nasal Cannula 2 12/02/16 21:40 96 Nasal Cannula 2.00 12/02/16 21:00 86 20 127/60 96 Nasal Cannula 2 12/02/16 20:50 89 20 141/64 95 Nasal Cannula 2 12/02/16 20:05 83 20 116/64 95 Nasal Cannula 2 12/02/16 19:30 88 20 97 Nasal Cannula 2 12/02/16 19:05 98.9 90 20 144/63 97 Nasal Cannula 2 12/02/16 19:05 20 97 Nasal Cannula 2 12/02/16 18:15 89 16 147/79 95 Nasal Cannula 2 12/02/16 15:00 99.7 94 16 122/68 95 Nasal Cannula 2 12/02/16 11:45 98 16 108/89 96 12/02/16 10:40 126 16 160/86 95 I/O 12/02/16 12/02/16 12/02/16 12/03/16 12/03/16 12/03/16 07:00 15:00 23:00 07:00 15:00 23:00 Intake Total 430 ml Output Total 1390 ml Balance -1390 ml 430 ml Intake Oral 180 ml IV Total 250 ml Output Urine Total 1390 ml # Voids 1 1 1 # Bowel Movements 0 Physical Exam GENERAL: This is a well-nourished, well-developed patient, with pursed lip breathing CARDIOVASCULAR: Regular rate and irregular rhythm without murmurs, gallops, or rubs. RESPIRATORY: diminished breath sounds on L GASTROINTESTINAL: Abdomen soft, non-tender, nondistended. Normal, active bowel sounds MUSCULOSKELETAL: Extremities without clubbing, cyanosis, or edema. NEURO: Alert & Oriented x4 to person, place, time, situation. Moves all ext x4 Laboratory Laboratory Tests Test 12/03/16 06:55 White Blood Count 6.5 TH/MM3 Red Blood Count 3.65 MIL/MM3 Hemoglobin 10.3 GM/DL Hematocrit 30.0 % Mean Corpuscular Volume 82.1 FL Mean Corpuscular Hemoglobin 28.3 PG Mean Corpuscular Hemoglobin 34.4 % Concent Red Cell Distribution Width 15.6 % Platelet Count 226 TH/MM3 Mean Platelet Volume 6.6 FL Neutrophils (%) (Auto) 63.2 % Lymphocytes (%) (Auto) 18.0 % Monocytes (%) (Auto) 14.0 % Eosinophils (%) (Auto) 4.5 % Basophils (%) (Auto) 0.3 % Neutrophils # (Auto) 4.1 TH/MM3 Lymphocytes # (Auto) 1.2 TH/MM3 Monocytes # (Auto) 0.9 TH/MM3 Eosinophils # (Auto) 0.3 TH/MM3 Basophils # (Auto) 0.0 TH/MM3 CBC Comment DIFF FINAL Differential Comment Sodium Level 129 MEQ/L Potassium Level 3.6 MEQ/L Chloride Level 89 MEQ/L Carbon Dioxide Level 29.4 MEQ/L Anion Gap 11 MEQ/L Blood Urea Nitrogen 12 MG/DL Creatinine 0.69 MG/DL Estimat Glomerular Filtration 111 ML/MIN Rate Random Glucose 99 MG/DL Calcium Level 8.3 MG/DL Imaging Last Impressions Chest X-Ray 12/02/16 0821 Signed Impressions: Service Date/Time: Friday, December 02, 2016 08:39 - CONCLUSION: Patchy areas of consolidation or atelectasis in the left upper lung and left lower lung with a mild left effusion. Robert Salinas MD Assessment and Plan Problem List: (1) A-fib Assessment and Plan: increased metoprolol given slightly fast rates, on warfarin (2) Non-sustained ventricular tachycardia Assessment and Plan: very short, normal LVEF by recent echo, increased bb (3) Respiratory distress Assessment and Plan: continued dyspnea w/ pursed lip breathing, diminished breath sounds, effusion, asked for pulmonary assistance. BNP fairly low so not clearly CHF. (4) Pleural effusion Assessment and Plan: as above. Fito Steel MD Dec 03, 2016 10:03
--- NOTE | 2016-12-03 14:51 | EKG ---
Date Performed: 12/02/2016 Time Performed: 08:13:48 PTAGE: 76 years EKG: Atrial fibrillation with rapid ventricular response with PVC(s) or aberrant ventricular con duction Rightward axis Right bundle branch block Inferior T wave changes are nonspecific Abnormal ECG Compared to prior tracing no significant change PREVIOUS TRACING : 09/12/2016 07.24 DOCTOR: Emily Frederick Interpretating Date/Time 12/03/2016 14:48:35
[2016-12-03] MEDS: WARFARIN SOD 4 MG TAB PO SCH (16:36)
[2016-12-03 19:49] LABS: BLOOD GAS PCO2 37 mmHg (38-42)
[2016-12-03 19:50] LABS: BLOOD GAS CARBOXYHEMOGLOBIN 1.6 % (0-4); BLOOD GAS HCO3 28 mmol/L (22-26); BLOOD GAS METHEMOGLOBIN 0.7 % (0-2); BLOOD GAS O2 HGB SATURATION 87 % (90-100); BLOOD GAS OXYGEN CONTENT 12.4 Vol % (12.0-20.0); BLOOD GAS PO2 55 mmHg (61-120); BLOOD GAS TOTAL HGB 10.1 G/DL (12.0-16.0); CRITICAL VALUE YES; FIO2 21 %; OXYGEN DEVICE ROOM AIR; TEMP CORR TO 98.6
[2016-12-03 19:51] LABS: DRAW SITE LT RADIAL; NUMBER OF ARTERIAL PUNCTURES 1; STAT NO; ULNAR PULSE PRESENT
[2016-12-03] MEDS: RESP: BUDESONIDE 0.5 MG/2 ML NEB NEB SCH (20:00)
[2016-12-03] MEDS: RESP: IPRATROPIUM 0.5 MG/2.5 ML NEB NEB SCH ×2 (20:46→23:58)
[2016-12-03] MEDS: TAMSULOSIN HCL 0.4 MG CAP PO SCH (20:51)
[2016-12-03] MEDS: METOPROLOL TARTRATE 50 MG TAB PO SCH (20:51)
[2016-12-03] MEDS: guaiFENesin E.R. 600 MG TAB PO SCH (20:51)
[2016-12-03] MEDS: AZITHROMYCIN INJ 500 MG in SODIUM CHLOR 0.9% 250 ML INJ 250 ML IV SCH (20:52)
[2016-12-03] MEDS: CEFEPIME INJ 1,000 MG in SODIUM CHLORIDE 0.9% INJ 100 ML IV SCH (21:51)
--- NOTE | 2016-12-03 22:36 | MB ---
cc: ERIN GOULD MD,ANNABELLA Glez MD DATE OF CONSULTATION 12/03/[address] Steel REASON FOR CONSULTATION Evaluate for possible underlying COPD. HISTORY OF THE PRESENT ILLNESS Mr. Vazquez is a pleasant 76-year-old male with history of coronary artery disease status post recent CABG times two and aortic valve replacement. He has history of atrial fibrillation. The patient came to the hospital with worsening of his shortness of breath for a few days. He has cough and congestion, has wheezing, increasing shortness of breath. Did not have any fever or chills. No night sweats. He has no known diagnosis of COPD though he has a history of smoking in the past. The patient was worked up in the hospital. IMAGING he had a chest x-ray done which shows patchy area of consolidation or atelectasis and small left pleural effusion. LABORATORY DATA His CBC showed WBC count 6.5, hemoglobin 10.3, hematocrit 30, MCV 82, platelet count 226. Sodium 129, potassium 3.6, chloride 89, CO2 29, BUN 12. Creatinine 0.69. PAST MEDICAL HISTORY His past medical history significant for: 1. A history of coronary artery disease status post CABG times two. 2. Aortic valve replacement. 3. Atrial fibrillation. 4. Hypertension. 5. Hyperlipidemia. 6. History of BPH. MEDICATIONS He is currently takin. Metoprolol 50 mg q.12. 2. Coumadin 8 mg a day. 3. Finasteride 5 mg a day. 4. Pravachol 80 milligrams a day. 5. Protonix 40 mg a day. 6. Potassium 10 mg twice a day. 7. Flomax 0.4 milligrams. 8. Diltiazem 60 mg q.i.d. ALLERGIES CODEINE. SOCIAL HISTORY He is . He used to work for the [employer]. No exposure to asbestos. He has history of smoking for 25 years which he quit smoking 30 years ago. No alcohol use. FAMILY HISTORY He has two children, one son has multiple sclerosis. REVIEW OF SYSTEMS Normally he is up, around and active. Denies any weight loss. No hemoptysis. No DVT or pulmonary embolism. No malignancy. PHYSICAL EXAMINATION GENERAL: Well built, well-nourished elderly male not in acute distress. VITAL SIGNS: Blood pressure 143/78, heart rate 100, respirations 18, temperature 97.9 HEENT: Pupils are equal and reactive to light. Oral mucosa, nasal mucosa normal. NECK: Supple. JVD not raised. CHEST: He has bilateral expiratory rhonchi. He has decreased breath sounds at the left base. CARDIOVASCULAR: S1-S2 regular. ABDOMEN: Soft, nondistended. Bowel sounds are present. EXTREMITIES: Trace pedal edema. IMPRESSION 1. Chronic obstructive pulmonary disease with mild exacerbation. 2. Coronary artery disease status post cath. 3. Aortic valve replacement. 4. Atrial fibrillation with rapid ventricular rate. PLAN I discussed with the patient I will check his pulmonary function study, room air blood gas, start him on bronchodilator treatment with albuterol and Atrovent. Symbicort twice a day. And assess him for oxygen therapy. Further treatment will depend on the course in the hospital. Thank you Dr. Steel for this consultation. MD SANDRINE Jasso/FREDI /5:35 PM /9:16 PM
[2016-12-04] VITALS (11 sets, daily range): BP systolic 99–134; BP diastolic 56–75; PULSE 64–137; RESP 18–20; TEMP 97.3–99; O2SAT 93–97
[2016-12-04] MEDS: RESP: IPRATROPIUM 0.5 MG/2.5 ML NEB NEB SCH ×6 (04:02→23:54)
[2016-12-04] MEDS: CEFEPIME INJ 1,000 MG in SODIUM CHLORIDE 0.9% INJ 100 ML IV SCH ×3 (06:01→21:47)
[2016-12-04] MEDS: PANTOPRAZOLE SOD 40 MG DELAYED RELEASE TAB PO SCH (06:01)
[2016-12-04] MEDS: RESP: BUDESONIDE 0.5 MG/2 ML NEB NEB SCH ×2 (07:17→19:07)
[2016-12-04] MEDS: FINASTERIDE 5 MG TAB PO SCH (08:39)
[2016-12-04] MEDS: SODIUM CHLORIDE 0.9% FLUSH 5 ML FLUSH FLUSH SCH ×2 (08:39→20:39)
[2016-12-04] MEDS: guaiFENesin E.R. 600 MG TAB PO SCH ×2 (08:39→20:38)
[2016-12-04] MEDS: DILTIAZEM HCL 60 MG TAB PO SCH (08:39)
[2016-12-04] MEDS: POTASSIUM CHLORIDE 10 MEQ CONTROLLED RELEASE TAB PO SCH ×2 (08:39→20:38)
[2016-12-04] MEDS: METOPROLOL TARTRATE 50 MG TAB PO SCH ×3 (08:39→20:38)
[2016-12-04] MEDS: PRAVASTATIN SOD 80 MG TAB PO SCH (08:39)
--- NOTE | 2016-12-04 08:46 | PD.CARD.PN ---
Subjective Subjective Remarks Pt wants to go home, currently rapid afib on tele, no sx Objective Medications Administered Medications Medications (Trade) Dose Ordered Sig/Serg Route PRN Reason Start Time Stop Time Status Last Admin Dose Admin Diltiazem HCl/ Sodium Chloride (Cardizem Inj/NS Inj) 125 ml @ 0 mls/hr TITRATE IV 12/02/16 08:30 12/02/16 16:39 IV Flush (NS Flush) 2 ml BID FLUSH 12/02/16 21:00 12/04/16 08:39 Finasteride (Proscar) 5 mg DAILY PO 12/03/16 09:00 12/04/16 08:39 Pantoprazole Sodium (Protonix) 40 mg DAILY@06 PO 12/03/16 06:00 12/04/16 06:01 Potassium Chloride (KCl) 10 meq BID PO 12/02/16 21:00 12/04/16 08:39 Tamsulosin HCl (Flomax) 0.4 mg HS PO 12/02/16 21:00 12/03/16 20:51 Warfarin Sodium (Coumadin) 8 mg DAILY@1600 PO 12/03/16 16:00 12/03/16 16:36 Pravastatin Sodium (Pravachol) 80 mg DAILY PO 12/03/16 09:00 12/04/16 08:39 Diltiazem HCl (Cardizem) 60 mg QID PO 12/02/16 18:00 12/04/16 08:39 Metoprolol Tartrate 50 mg 50 mg Q12HR PO 12/03/16 21:00 12/04/16 08:39 Cefepime HCl 1000 mg/Sodium Chloride 100 ml @ 200 mls/hr Q8H IV 12/03/16 22:00 12/04/16 06:01 Azithromycin/ Sodium Chloride (Zithromax Inj/ NS 250 ml Inj) 250 ml @ 250 mls/hr Q24H IV 12/03/16 20:00 12/03/16 20:52 Guaifenesin (Mucinex Er) 600 mg BID PO 12/03/16 21:00 12/04/16 08:39 Vital Signs / I&O Vital Signs Date Time Temp Pulse Resp B/P Pulse Ox O2 Delivery O2 Flow Rate FiO2 12/04/16 07:20 97 Nasal Cannula 2.00 12/04/16 04:10 99.0 109 20 132/75 96 12/04/16 04:04 99.0 109 20 132/75 96 12/04/16 04:04 96 Nasal Cannula 2.00 12/04/16 00:14 98.9 78 20 117/64 94 12/04/16 00:00 96 Nasal Cannula 2.00 12/03/16 20:35 98.8 75 16 85/56 96 12/03/16 20:00 Nasal Cannula 2.00 12/03/16 20:00 91 12/03/16 17:49 95 Nasal Cannula 2.00 12/03/16 16:05 97.9 100 18 143/78 95 12/03/16 12:22 98.3 96 20 149/68 92 I/O 12/03/16 12/03/16 12/03/16 12/04/16 12/04/16 12/04/16 07:00 15:00 23:00 07:00 15:00 23:00 Intake Total 430 ml 360 ml 240 ml 120 ml Output Total 100 ml 400 ml 250 ml Balance 430 ml 260 ml -160 ml -130 ml Intake Oral 180 ml 360 ml 240 ml 120 ml IV Total 250 ml Output Urine Total 100 ml 400 ml 250 ml # Voids 1 3 # Bowel Movements 0 0 Physical Exam GENERAL: This is a well-nourished, well-developed patient, with pursed lip breathing CARDIOVASCULAR: rapid rate and irregular rhythm without murmurs, gallops, or rubs. RESPIRATORY: diminished breath sounds on L GASTROINTESTINAL: Abdomen soft, non-tender, nondistended. Normal, active bowel sounds MUSCULOSKELETAL: Extremities without clubbing, cyanosis, or edema. NEURO: Alert & Oriented x4 to person, place, time, situation. Moves all ext x4 Laboratory Laboratory Tests Test 12/03/16 19:40 Blood Gas Puncture Site LT RADIAL Blood Gas Patient Temperature 98.6 Blood Gas HCO3 28 mmol/L Blood Gas Base Excess 5.0 mmol/L Blood Gas Oxygen Saturation 87 % Arterial Blood pH 7.49 Arterial Blood Partial 37 mmHg Pressure CO2 Arterial Blood Partial 55 mmHg Pressure O2 Arterial Blood Oxygen Content 12.4 Vol % Arterial Blood 1.6 % Carboxyhemoglobin Arterial Blood Methemoglobin 0.7 % Blood Gas Hemoglobin 10.1 G/DL Oxygen Delivery Device ROOM AIR Blood Gas Inspired Oxygen 21 % Imaging Last Impressions Chest X-Ray 12/02/16 0821 Signed Impressions: Service Date/Time: Friday, December 02, 2016 08:39 - CONCLUSION: Patchy areas of consolidation or atelectasis in the left upper lung and left lower lung with a mild left effusion. Robert Salinas MD Assessment and Plan Problem List: (1) A-fib Assessment and Plan: increased metoprolol and dilt given slightly fast rates, on warfarin (2) Non-sustained ventricular tachycardia Assessment and Plan: very short, normal LVEF by recent echo, increased bb (3) Respiratory distress Assessment and Plan: continued dyspnea w/ pursed lip breathing, diminished breath sounds, effusion, appreciate pulmonary assistance. BNP fairly low so not clearly CHF. (4) Pleural effusion Assessment and Plan Pt anxious to go home, from a cardiac standpoint this might be possible if heart rates controlled on increased meds, but pulmonary workup still in progress I believe. Fito Steel MD Dec 04, 2016 08:46
[2016-12-04] MEDS ORDERED: PILL SPLITTER OTHER PRN (09:00)
[2016-12-04] MEDS: DILTIAZEM HCL 90 MG TAB PO SCH ×4 (09:28→20:38)
[2016-12-04] MEDS ORDERED: OXYGENTANK NAS.CANULA (12:57)
[2016-12-04] MEDS ORDERED: BUDE.5I NEB (13:38)
[2016-12-04] MEDS ORDERED: DILT90TA PO (13:38)
[2016-12-04] MEDS ORDERED: LEVO750T33 PO (13:38)
[2016-12-04] MEDS ORDERED: METO-309 PO (13:38)
--- NOTE | 2016-12-04 13:43 | HHI.PR ---
Subjective Remarks The patient wants to go home. He wants to know if this can have a respiratory test before he goes. He understands that he will need home oxygen. Family at the bedside. Discussed with case management. Objective Vitals Vital Signs Date Time Temp Pulse Resp B/P Pulse Ox O2 Delivery O2 Flow Rate FiO2 12/04/16 12:00 97.3 64 20 99/63 97 12/04/16 09:39 119 12/04/16 08:10 Nasal Cannula 2.00 12/04/16 08:00 98.4 137 18 134/72 95 12/04/16 07:20 97 Nasal Cannula 2.00 12/04/16 04:10 99.0 109 20 132/75 96 12/04/16 04:04 99.0 109 20 132/75 96 12/04/16 04:04 96 Nasal Cannula 2.00 12/04/16 00:14 98.9 78 20 117/64 94 12/04/16 00:00 96 Nasal Cannula 2.00 12/03/16 20:35 98.8 75 16 85/56 96 12/03/16 20:00 Nasal Cannula 2.00 12/03/16 20:00 91 12/03/16 17:49 95 Nasal Cannula 2.00 12/03/16 16:05 97.9 100 18 143/78 95 I/O 12/03/16 12/03/16 12/03/16 12/04/16 12/04/16 12/04/16 07:00 15:00 23:00 07:00 15:00 23:00 Intake Total 430 ml 360 ml 240 ml 120 ml Output Total 100 ml 400 ml 250 ml Balance 430 ml 260 ml -160 ml -130 ml Intake Oral 180 ml 360 ml 240 ml 120 ml IV Total 250 ml Output Urine Total 100 ml 400 ml 250 ml # Voids 1 3 # Bowel Movements 0 0 Result Diagram: 12/03/1655 12/03/16654 Imaging Last Impressions Chest X-Ray 12/02/16820 Signed Impressions: Service Date/Time: Friday, December 02, 2016 08:39 - CONCLUSION: Patchy areas of consolidation or atelectasis in the left upper lung and left lower lung with a mild left effusion. Robert Salinas MD Objective Remarks GENERAL: Resting comfortably in bed. SKIN: No rashes, ecchymoses or lesions. Cool and dry. HEAD: Atraumatic. Normocephalic. No temporal or scalp tenderness. EYES: Pupils equal round and reactive. Extraocular motions intact. No scleral icterus. No injection or drainage. ENT: Nose without bleeding, purulent drainage or septal hematoma. Throat without erythema, tonsillar hypertrophy or exudate. Uvula midline. Airway patent. NECK: Trachea midline. No JVD or lymphadenopathy. Supple, nontender, no meningeal signs. CARDIOVASCULAR: Irregularly irregular without murmurs, gallops, or rubs. RESPIRATORY: Decreased breath sounds bilaterally, no wheezing or crackles. GASTROINTESTINAL: Abdomen soft, non-tender, nondistended. No hepato-splenomegaly , or palpable masses. No guarding. MUSCULOSKELETAL: Extremities without clubbing, cyanosis, or edema. NEUROLOGICAL: Awake and alert. Cranial nerves II through XII intact. PSYCH: Flattened affect. Medications and IVs Current Medications Medications (Trade) Dose Ordered Sig/Serg Route Start Time Stop Time Status Last Admin (Cardizem Inj/NS Inj) 125 ml @ 0 mls/hr TITRATE IV 12/02/16 08:30 12/02/16 16:39 (NS Flush) 2 ml UNSCH PRN FLUSH 12/02/16 10:30 (NS Flush) 2 ml BID FLUSH 12/02/16 21:00 12/04/16 08:39 (Buspar) 5 mg BID PRN PO 12/02/16 10:30 (Proscar) 5 mg DAILY PO 12/03/16 09:00 12/04/16 08:39 (Protonix) 40 mg DAILY@06 PO 12/03/16 06:00 12/04/16 06:01 (KCl) 10 meq BID PO 12/02/16 21:00 12/04/16 08:39 (Flomax) 0.4 mg HS PO 12/02/16 21:00 12/03/16 20:51 (Coumadin) 8 mg DAILY@1600 PO 12/03/16 16:00 12/03/16 16:36 Pravastatin Sodium 80 mg 80 mg DAILY PO 12/03/16 09:00 12/04/16 08:39 Cefepime HCl 1000 mg/Sodium Chloride 100 ml @ 200 mls/hr Q8H IV 12/03/16 22:00 12/04/16 06:01 (Zithromax Inj/ NS 250 ml Inj) 250 ml @ 250 mls/hr Q24H IV 12/03/16 20:00 12/03/16 20:52 (Mucinex Er) 600 mg BID PO 12/03/16 21:00 12/04/16 08:39 (Cardizem) 90 mg QID PO 12/04/16 09:00 12/04/16 09:28 (Lopressor) 75 mg Q12HR PO 12/04/16 09:00 12/04/16 09:28 (Pill Splitter) 1 ea UNSCH PRN OTHER 12/04/16 09:00 A/P Assessment and Plan 1. Atrial fibrillation with RVR, admitted and started on Cardizem drip, rate controlled, re started Warfarin, EKG showed Atrial Fibrillation at a rate of 136 with right bundle branch block, occasional PVC, Imaging studies showed Patchy areas of consolidation or atelectasis in the left upper lung and left lower lung with mild left effusion, Seen by search engine marketing specialist, Given Furosemide IV for mild CHF, patient has COPD/Emphysema asked for clinical nurse specialist consult. No clear CHF. 2. COPD/Emphysema optimized respiratory management and asked for clinical nurse specialist consult. - continue inhaler, nebs, and follow up with pulmonary. 3. Community Acquired Pneumonia as per patient his in the room states the patient had sudden onset of his Symptomatology, even he has COPD that is not been diagnosed yet as per patient, he became short of breath for the last four days, not totally explained by his CHF will optimize his respiratory medicines Ipratropium [place], Budesonide Nebulized, Incentive spirometry, Mucolytic, added antibiotics Cefepime and Azithromycin as his CXR is abnormal. 4. Hyponatremia. The pt appears euvolemic. - fluid restriction. 5. BPH resume home Finasteride and Tamsulosin 6. Hyperlipidemia on home statins 7. Anemia at baseline DVT prophylaxis - On warfarin, therapeutic INR. Discharge Planning Possibly d/c later today if home oxygen set up and HR remains controlled. Kwadwo Patel DO Dec 04, 2016 13:43
[2016-12-04] MEDS: DOCUSATE SODIUM 100 MG CAP PO SCH ×2 (13:56→20:38)
--- NOTE | 2016-12-04 14:55 | HHI.DCPOC ---
Discharge Care Plan Diagnosis: (1) Respiratory distress (2) COPD (chronic obstructive pulmonary disease) (3) A-fib (4) Pneumonia (5) Hyponatremia Goals to Promote Your Health * To prevent worsening of your condition and complications * To maintain your health at the optimal level Directions to Meet Your Goals Take your medications as prescribed Follow your dietary instruction Follow activity as directed Keep your appointments as scheduled Take your immunizations and boosters as scheduled If your symptoms worsen call your PCP, if no PCP go to Urgent Care Center or Emergency Room Smoking is Dangerous to Your Health. Avoid second hand smoke Call the 24-hour hour crisis hotline for domestic abuse at Kwadwo Patel DO Dec 04, 2016 14:55
--- NOTE | 2016-12-04 14:56 | HHI.FF ---
Face to Face Verification Diagnosis: (1) Pneumonia (2) Hyponatremia (3) Respiratory distress (4) COPD (chronic obstructive pulmonary disease) (5) A-fib Physical Therapy Order: Evaluate and Treat, Improve ambulation, Strength and gait training Home Health Nursing Order: Medical education Signs/symptoms of disease process CHF education Oxygen administration education Medication education-adverse effect Nursing assessment with vital signs I have seen patient Ollie Vazquez on 12/04/16. My clinical findings support the need for the requested home health care services because: Ltd mobility - disease progression Patient has SOB Deconditioned w/ increased weakness Limited ability to care for self High risk of falls I certify that my clinical findings support that this patient is homebound because: Hx COPD- exertion dyspnea/weakness Unsteady gait/balance Unsafe to leave home unassisted Kwadwo Patel DO Dec 04, 2016 14:55
--- NOTE | 2016-12-04 15:01 | HHI.DS ---
Discharge Summary Admission Date This report is in ERROR Please disregard this report and all prior copies ! This report is in ERROR Please disregard this report and all prior copies ! This report is in ERROR Please disregard this report and all prior copies ! Discharge Date: Dec 04, 2016 Admitting Diagnosis CHF exacerbation/A. fib with RVR (1) Pneumonia ICD Code: J18.9 Diagnosis: Principal (2) Hyponatremia ICD Code: E87.1 (3) Respiratory distress ICD Code: R06.00 Diagnosis: Principal (4) COPD (chronic obstructive pulmonary disease) ICD Code: J44.9 Diagnosis: Principal (5) A-fib ICD Code: I48.91 Diagnosis: Principal Procedures None. Brief History - From Admission This is a 76-year-old male medical history significant for coronary artery disease status post previous CABG and aortic valve replacement, hypertension, CHF and atrial fibrillation who presents to [facility] ED with complaints of worsening shortness of breath and cough 3 days. Patient denies any complaints of fever, chills, nausea, vomiting, chest pain or abdominal pain. He denies any hematuria or dysuria. He denies any hematochezia or melena. He does report 3 pound weight gain over the past several days. He admits that he' s had a very difficult time controlling his heart rate ever since he had his open heart surgery and was recently started on diltiazem 30 mg 3 times a day in addition to his previously prescribed metoprolol. He does complain of palpitations. States that his shortness of breath is worse with activity. He' s been taking the Lasix every 3 days as instructed by his physician. CBC/BMP: 12/03/16 0655 12/03/16 0655 Significant Findings Laboratory Tests Test 12/02/16 12/03/16 12/03/16 08:25 06:55 19:40 Hemoglobin 12.6 GM/DL 10.3 GM/DL (13.0-17.0) (13.0-17.0) Hematocrit 37.5 % 30.0 % (39.0-51.0) (39.0-51.0) Mean Platelet Volume 6.5 FL 6.6 FL (7.0-11.0) (7.0-11.0) Monocytes (%) (Auto) 13.2 % 14.0 % (0.0-8.0) (0.0-8.0) Eosinophils (%) (Auto) 5.0 % (0.0-4.0) 4.5 % (0.0-4.0) Prothrombin Time 27.7 SEC (9.8-11.6) Activated Partial 42.9 SEC Thromboplast Time (24.3-30.1) Sodium Level 128 MEQ/L 129 MEQ/L (136-145) (136-145) Chloride Level 88 MEQ/L 89 MEQ/L (98-107) (98-107) Random Glucose 123 MG/DL (74-106) Alkaline Phosphatase 131 U/L (45-117) Creatine Kinase MB 3.8 NG/ML (0.5-3.6) B-Type Natriuretic Peptide 335 PG/ML (0-100) Total Protein 8.7 GM/DL (6.4-8.2) Red Blood Count 3.65 MIL/MM3 (4.50-5.90) Calcium Level 8.3 MG/DL (8.5-10.1) Blood Gas HCO3 28 mmol/L (22-26) Blood Gas Base Excess 5.0 mmol/L (-2-2) Blood Gas Oxygen Saturation 87 % (90-100) Arterial Blood pH 7.49 (7.380-7.420) Arterial Blood Partial 37 mmHg (38-42) Pressure CO2 Arterial Blood Partial 55 mmHg Pressure O2 (61-120) Blood Gas Hemoglobin 10.1 G/DL (12.0-16.0) Imaging Last Impressions Chest X-Ray 12/02/16 08 Signed Impressions: Service Date/Time: Friday, December 02, 2016 08:39 - CONCLUSION: Patchy areas of consolidation or atelectasis in the left upper lung and left lower lung with a mild left effusion. Robert Salinas MD PE at Discharge GENERAL: Resting comfortably in bed. SKIN: No rashes, ecchymoses or lesions. Cool and dry. HEAD: Atraumatic. Normocephalic. No temporal or scalp tenderness. EYES: Pupils equal round and reactive. Extraocular motions intact. No scleral icterus. No injection or drainage. ENT: Nose without bleeding, purulent drainage or septal hematoma. Throat without erythema, tonsillar hypertrophy or exudate. Uvula midline. Airway patent. NECK: Trachea midline. No JVD or lymphadenopathy. Supple, nontender, no meningeal signs. CARDIOVASCULAR: Irregularly irregular without murmurs, gallops, or rubs. RESPIRATORY: Decreased breath sounds bilaterally, no wheezing or crackles. GASTROINTESTINAL: Abdomen soft, non-tender, nondistended. No hepato-splenomegaly , or palpable masses. No guarding. MUSCULOSKELETAL: Extremities without clubbing, cyanosis, or edema. NEUROLOGICAL: Awake and alert. Cranial nerves II through XII intact. PSYCH: Flattened affect. Hospital Course Atrial fibrillation with RVR The pt was admitted and started on a Cardizem drip. Cardiology was consulted. His Lopressor and Cardizem were increased with resulting better rate control. He was continued on Coumadin. He will follow up with cardiology as an outpt. COPD/Emphysema Pulmonary was consulted. He was continued on inhalers, nebs and will follow up with pulmonary as an outpt. Community Acquired Pneumonia CXR indicative of possible infection. He was recently hospitalized. He received cefepime and azithromycin. He will complete a course of Levaquin upon discharge. He will follow up with pulmonology. Hyponatremia Has been stable. He will follow up with his PCP. Pt Condition on Discharge: Stable Discharge Disposition: Disch w/ Home Health Serv Discharge Time: > 30 minutes Discharge Instructions DIET: Follow Instructions for: Heart Healthy Diet Activities you can perform: Weight Bearing as Mary Follow up Referrals: Cardiology - 1 Week PCP Follow-up - 1 Week Pulmonology - 1 Week New Medications: Levofloxacin (Levofloxacin) 750 Mg Tab 750 MG PO DAILY Infection #5 Ref 0 TAB Oxygen tank (Oxygen tank) 1 Ea Tank 2 LITER STEPHEN.CANULA CONTINUOUS Oxygen Concentrator Portable Gaseous 2 L/min via Nasal Cannula Continuous For 99 months HYPOXEMIA PREVENTION #2 CYLINDER Budesonide Neb (Pulmicort Respules) 0.5 Mg/2 Ml Neb 0.5 MG NEB Q12HR NEB Breathing #60 NEBULE Diltiazem (Diltiazem) 90 Mg Tab 90 MG PO QID Heart rate #120 TAB Metoprolol Tartrate (Lopressor) 50 Mg Tab 75 MG PO Q12HR Heart rate #60 TAB Continued Medications: Aspirin DR (Aspir-Low) 81 Mg Tabdr Buspirone (Buspirone) 5 Mg Tab 5 MG PO BID PRN ANXIETY Ref 0 TAB Cobalamine Combinations (Vitamin A14-Lddvc Acid) 500-400 Mcg Tab 1 TAB PO DAILY Nutritional Supplement Ref 0 TAB Docusate Sodium (Dok) 100 Mg Cap 100 MG PO BID Constipation #60 CAP Finasteride (Finasteride) 5 Mg Tab 5 MG PO DAILY Do not crush. Manage Prostate Problems #30 Ref 0 TAB Furosemide (Furosemide) 20 Mg Tab 20 MG PO BID water pill #60 Ref 0 TAB Lactobacillus Acidophilus (Probiotic) 1 Cap Cap 1 CAP PO DAILY Nutritional Supplement #90 Ref 0 CAP Lorazepam (Ativan) 0.5 Mg Tab 0.5 MG PO TID PRN ANXIETY AND/OR AGITATION #15 Ref 0 TAB Magnesium Hydroxide Liq (Milk of Magnesia Liq) 400 Mg/5 Ml Susp 30 ML PO DAILY PRN SEE LABEL COMMENTS #30 CONTAINER Multiple Vitamin (Multi Vitamin) 1 Tab Tab 1 TAB PO DAILY TAB Pantoprazole (Pantoprazole) 40 Mg Tab 40 MG PO DAILY@06 gerd #30 TAB Potassium Chloride ER (Potassium Chloride ER) 10 Meq Cap 10 MEQ PO BID Electrolyte Replacement #60 Ref 0 CAP Ranitidine (Zantac) 150 Mg Tab 75 MG PO BID Reduce Stomach Acid #60 Ref 0 TAB Simvastatin (Zocor) 40 Mg Tab 40 MG PO DAILY Cholesterol Management #30 Ref 0 TAB Tamsulosin (Tamsulosin) 0.4 Mg Cap 0.4 MG PO HS Manage Prostate Problems #30 Ref 0 CAP Warfarin (Warfarin) 4 Mg Tab 8 MG PO DAILY Blood Clot Prevention #30 Ref 0 TAB Discontinued Medications: Diltiazem (Diltiazem) 30 Mg Tab 30 MG PO TID Angina #120 Ref 0 TAB Metoprolol Tartrate (Metoprolol Tartrate) 25 Mg Tab 25 MG PO Q12HR heart rate #60 TAB Kwadwo Patel DO Dec 04, 2016 15:01
[2016-12-04] MEDS: WARFARIN SOD 4 MG TAB PO SCH (16:31)
--- NOTE | 2016-12-04 18:22 | HHI.PR ---
Subjective Remarks 76 YOWM with COPD exac,CAD,AF,AVR Anxious mild sob Wheezing improved at BS Objective Vital Signs Vital Signs Date Time Temp Pulse Resp B/P Pulse Ox O2 Delivery O2 Flow Rate FiO2 12/04/16 16:00 98.6 72 20 107/56 95 12/04/16 15:36 93 Nasal Cannula 2.00 12/04/16 12:00 97.3 64 20 99/63 97 12/04/16 09:39 119 12/04/16 08:10 Nasal Cannula 2.00 12/04/16 08:00 98.4 137 18 134/72 95 12/04/16 07:20 97 Nasal Cannula 2.00 12/04/16 04:10 99.0 109 20 132/75 96 12/04/16 04:04 99.0 109 20 132/75 96 12/04/16 04:04 96 Nasal Cannula 2.00 12/04/16 00:14 98.9 78 20 117/64 94 12/04/16 00:00 96 Nasal Cannula 2.00 12/03/16 20:35 98.8 75 16 85/56 96 12/03/16 20:00 Nasal Cannula 2.00 12/03/16 20:00 91 I/O 12/03/16 12/03/16 12/03/16 12/04/16 12/04/16 12/04/16 07:00 15:00 23:00 07:00 15:00 23:00 Intake Total 430 ml 360 ml 240 ml 120 ml 480 ml Output Total 100 ml 400 ml 250 ml 800 ml Balance 430 ml 260 ml -160 ml -130 ml -320 ml Intake Oral 180 ml 360 ml 240 ml 120 ml 480 ml IV Total 250 ml Output Urine Total 100 ml 400 ml 250 ml 800 ml # Voids 1 3 # Bowel Movements 0 0 1 Result Diagram: 12/03/1665412/03/16 06 Objective Remarks GENERAL: MBMN WM, anxious, no distress SKIN: Warm and dry. HEAD: Normocephalic. EYES: No scleral icterus. No injection or drainage. NECK: Supple, trachea midline. No JVD or lymphadenopathy. CARDIOVASCULAR: Regular rate and rhythm without murmurs, gallops, or rubs. RESPIRATORY: Breath sounds equal bilaterally. No accessory muscle use. GASTROINTESTINAL: Abdomen soft, non-tender, nondistended. MUSCULOSKELETAL: No cyanosis, or edema. BACK: Nontender without obvious deformity. No CVA tenderness. A/P Assessment and Plan COPD Exac improved CAD AF AVR PLAN: DW pt and his Anxious to go home Will check PFT Aerosol nebs Symbicort bid Moses Gray MD Dec 04, 2016 18:22
[2016-12-04] MEDS: TAMSULOSIN HCL 0.4 MG CAP PO SCH (20:38)
[2016-12-04] MEDS: AZITHROMYCIN INJ 500 MG in SODIUM CHLOR 0.9% 250 ML INJ 250 ML IV SCH (20:39)
[2016-12-05] VITALS (14 sets, daily range): BP systolic 72–122; BP diastolic 33–57; PULSE 52–124; RESP 16–19; TEMP 91.8–97.7; O2SAT 95–100
[2016-12-05] MEDS ORDERED: NOREPINEPHRINE-DEXTROSE DRIP 250 ML IV ONE (02:47)
[2016-12-05] MEDS ORDERED: EPINEPHrine HCL (1:1000) 1 MG/ML VIAL ONE (02:55)
[2016-12-05 03:25] LABS: BLOOD GAS CARBOXYHEMOGLOBIN 0.6 % (0-4); BLOOD GAS HCO3 19 mmol/L (22-26); BLOOD GAS O2 HGB SATURATION 98 % (90-100); BLOOD GAS OXYGEN CONTENT 14.2 Vol % (12.0-20.0); BLOOD GAS PCO2 52 mmHg (38-42); BLOOD GAS PO2 370 mmHg (61-120); BLOOD GAS TOTAL HGB 9.6 G/DL (12.0-16.0); CRITICAL VALUE YES; OXYGEN DEVICE VENTILATOR; TEMP CORR TO 98.6; VENT SETTINGS AC 16/500/PEEP5
[2016-12-05 03:26] LABS: DRAW SITE LT FEMORAL; FIO2 100 %; STAT YES
[2016-12-05 03:34] LABS: HEMATOCRIT 29.6 % (39.0-51.0); MEAN CELL VOLUME 83.6 FL (80.0-100.0); MEAN CORPUSCULAR HEMOGLOBIN 28.2 PG (27.0-34.0); MEAN CORPUSCULAR HGB CONC 33.7 % (32.0-36.0); PLATELET COUNT 210 TH/MM3 (150-450); RED BLOOD COUNT 3.54 MIL/MM3 (4.50-5.90); RED CELL DISTRIBUTION WIDTH 15.2 % (11.6-17.2); REVIEW FLAG FINAL; WHITE BLOOD COUNT 14.7 TH/MM3 (4.0-11.0)
[2016-12-05] MEDS ORDERED: TERBUTALINE INJ 1 MG/ML AMP SQ PRN ×2 (03:45→04:45)
[2016-12-05] MEDS ORDERED: SODIUM BICARBONATE 8.4% INJ 50 MEQ/50 ML SYR IV PUSH ONE (03:45)
[2016-12-05] MEDS ORDERED: DOPamine INJ 1,600 MG in DEXTROSE 5% IN WATER INJ 240 ML IV SCH ×2 (03:45)
[2016-12-05 03:50] LABS: INTERNATIONAL NORMALIZED RATIO 4.4 RATIO; PROTHROMBIN TIME - PATIENT 51.4 SEC (9.8-11.6)
[2016-12-05 04:06] LABS: ALKALINE PHOSPHATASE 178 U/L (45-117); ALT (GPT) 1466 U/L (12-78); ANION GAP 22 MEQ/L (5-15); AST (GOT) 2558 U/L (15-37); BICARBONATE 20.8 MEQ/L (21.0-32.0); BLOOD UREA NITROGEN 28 MG/DL (7-18); CHLORIDE 85 MEQ/L (98-107); CREATINE KINASE 191 U/L (39-308); GLOMERULAR FILTRATION RATE 34 ML/MIN (>89); MAGNESIUM 2.1 MG/DL (1.5-2.5); POTASSIUM 6.1 MEQ/L (3.5-5.1); SODIUM (NA) 128 MEQ/L (136-145); TOTAL BILIRUBIN ADULT 0.8 MG/DL (0.2-1.0)
--- NOTE | 2016-12-05 04:08 | PD.PROCEDR ---
Procedure Note Procedure PROCEDURE NOTE PROCEDURE: Endotracheal intubation INDICATION: Acute respiratory failure, cardiac arrest DETAILS OF PROCEDURE: CPR is ongoing and chest compressions continued throughout procedure. The patient was bagged with 100% FiO2 via [id number]. Direct laryngoscopy was performed with a 4.0 Medrano laryngoscope blade and a grade I Cormack-Lehane view was obtained. On single attempt a size 8.0 endotracheal tube was visualized passing through the cords. Correct placement was confirmed with colorimetric CO2 detector. Breath sounds were equal bilaterally. No sounds auscultated over the stomach. The endotracheal tube was secured with a commercial tube rodriguez at a depth of 23 cm at the lips. The patient continued to be bagged and undergoing chest compression. Abigail Gonzáles MD Dec 05, 2016 04:08
[2016-12-05 04:19] LABS: CKMB 1.6 NG/ML (0.5-3.6)
[2016-12-05] MEDS ORDERED: DEXTROSE 50% IN WATER 50 ML VIAL(D50) IV PUSH ONE (04:30)
[2016-12-05] MEDS ORDERED: SODIUM BICARBONATE 8.4% INJ 150 MEQ in WATER STERILE FOR INJ 850 ML IV SCH (04:30)
[2016-12-05] MEDS ORDERED: DEXTROSE 50% IN WATER 50 ML VIAL(D50) IV PUSH PRN (04:30)
[2016-12-05] MEDS: INSULIN ASPART SUPPLEMENTAL SCALE SQ SCH ×2 (04:30→10:58)
[2016-12-05] MEDS ORDERED: GLUCAGON 1 MG/ML VIAL OTHER PRN (04:30)
[2016-12-05] MEDS ORDERED: SODIUM POLYSTYRENE SULFONATE SUSP 15 GM/60 ML CUP TUBE ONE (04:30)
[2016-12-05] MEDS ORDERED: CALCIUM CHLORIDE INJ 1 GM in SODIUM CHLORIDE 0.9% INJ 100 ML IV ONE (04:30)
[2016-12-05] MEDS ORDERED: INSULIN HUMAN REGULAR 1,000 UNITS/10 ML VIAL IV PUSH ONE (04:30)
--- NOTE | 2016-12-05 04:30 | PD.PROCEDR ---
Procedure Note Procedure Date: 12/05/16 Procedure: Cardiopulmonary resucitation Indication: Asystolic cardiac arrest Details of procedure: Presented to bedside for CODE BLUE at 02:04. Chest compressions were ongoing when I arrived. Respiratory arrived at same time and began bagging with 100% BVM. Patient was placed on Zoll monitor and was in asystole. Per ACLS protocol pt received CPR, manual bag-valve ventilation, epinephrine 6, CaCl2 x1 , 1 amp D50, Bicarb x 4 amps. Patient was intubated while chest compressions ongoing. Patient remained in asystole. After 26 minutes there was ROSC and patient was in bradycardic/junctional rhythm. Started on dopamine and transferred to ICU. Refer to Code Note for Details. Reviewed telemetry and patient had also experienced bradycardic rhythm with widened complex at around 1:15. RN states she had checked on him and he was responsive at that time and normotensive. Abigail Gonzáles MD Dec 05, 2016 04:30
--- NOTE | 2016-12-05 04:32 | PD.PROCEDR ---
Procedure Note Procedure DATE: 12/05/16 PROCEDURE: Left femoral arterial catheter placement INDICATION: Shock DETAILS OF PROCEDURE The patient was placed in supine position. The skin was cleansed with Chloraprep x3. Additional barrier precautions included large sterile drape, sterile gloves, sterile gown, face mask, and hat. 1% lidocaine was used for local anesthesia. Under direct ultrasound guidnce and on the first attempt, the artery was accessed with an introducer needle. The guide wire was advanced. Using Seldinger technique 16 gauge 27 arterial catheter was placed. The guide wire was removed. The catheter was connected to a transducer line and flushed with saline. The video monitor displayed normal arterial wave forms. The catheter was secured with 2-0 silk. A sterile dressing with antibiotic disc was applied. ESTIMATED BLOOD LOSS: minimal COMPLICATIONS: None Abigail Gonzáles MD Dec 05, 2016 04:32
--- NOTE | 2016-12-05 04:34 | PD.PROCEDR ---
Procedure Note Procedure DATE: 12/05/16 CENTRAL LINE PLACEMENT: Right internal jugular vein. Ultrasound-guided INDICATION: Central venous access CONSENT Procedure was done emergently as patient is not capacitated for medical decision -making and is in extremis and in need of central IV access DESCRIPTION OF THE PROCEDURE The patient was placed in supine position, mild Trendelenburg. The skin was cleansed with Chloraprep 3. Additional barrier precautions included large sterile drape, sterile gloves, sterile gown, face mask, and hat. 1 % lidocaine was used for local anesthesia. Under direct ultrasound guidance and on single attempt, the vein was accessed with an introducer needle. The guide wire was advanced and the tract was dilated. Using Seldinger technique a 7 [place] 20 cm antimicrobial coated triple-lumen catheter was advanced to a depth of 18 centimeters. The guide wire was removed. All ports had good return of dark venous blood and flushed easily with saline. The central line was secured with 2.0 silk. A sterile dressing with antibiotic disc was applied. ESTIMATED BLOOD LOSS: Minimal COMPLICATIONS: No apparent complications. STAT chest x-ray is pending Abigail Gonzáles MD Dec 05, 2016 04:34
--- NOTE | 2016-12-05 04:35 | PD.CONS ---
[facility] Service Critical Care Medicine Consult Requested By Dr. Rich Reason for Consult Cardiac arrest Primary Care Physician Liane Andino MD History of Present Illness 76 her old male with past medical history of coronary artery disease status post recent 2 vessel CABG and bioprosthetic aVR and TV repair 08/18/16, paroxysmal atrial fibrillation on chronic anticoagulation with warfarin, chronic diastolic CHF who was admitted to [facility] on 12/02/16 with SOB, weight gain and found to have atrial fibrillation RVR and acute exacerbation of CHF. He had undergone rate control with Cardizem drip and transitioned to metoprolol and po Cardizem. He was placed on cefepime and azithromycin for left upper and lower lobe infiltrate. He was diuresed and plans were being made for discharge. He had been complaining of SOB earlier in the evening but sats were in mid 90s on 2 L NC. RN states that he was checke don around 1:24 because leads had come off and was responsive. At 02:04 RN went to check on him because he was off the monitor and he was unresponsive. VIKY LOVE was called. When I arrived, CPR was ongoing. Placed patient on Zoll monitor and he was in asystole. Pupils fixed and dilated. Refer to VIKY LOVE Note for details but he was intubated, had ROSC after 26 minutes. He received epi x5, bicarb x4, calcium, dextrose. He was in profound shock post arrest with multiorgan failure and bedside u/s demonstrates severely reduced LV function. On levophed and epinephrine. states he had been having a cough for a couple of days, felt congested but "nothing would come up" Past Family Social History Allergies: Coded Allergies: Codeine (Verified Adverse Reaction, Severe, N/V, 12/02/16) Past Medical History Coronary artery disease Aortic stenosis Atrial fibrillation ?COPD Past Surgical History 2 vessel CABG and prior prostatic aortic valve replacement 08/20/16 (Dr. Gabby Bullard) Active Ordered Medications Azithromycin 500 mg IV daily Cefepime 1 g IV every 8 hours Warfarin 8 mg daily Pravachol 80 mg daily Proscar 5 mg daily Pantoprazole 40 mg by mouth daily Ipratropium 0.5 mg neb every 4 hours Cardizem 60 mg 4 times a day BuSpar 5 mg by mouth twice a day Metoprolol 50 mg by mouth every 12 hours Family History He has 7 siblings. Had a sister with COPD and coronary stents He had a brother who of diabetes and coronary artery disease Social History He started smoking at age 17. He quit smoking 36 years ago No history of alcohol use No history of illicit drug use He really relocated here from [place]. He has been to his for 2 years He is retired from the [employer] Physical Exam Vital Signs Vital Signs Date Time Temp Pulse Resp B/P Pulse Ox O2 Delivery O2 Flow Rate FiO2 12/05/16 04:17 100 100 12/05/16 02:50 100 100 12/05/16 00:28 97.7 52 18 100/57 95 12/04/16 20:00 98.0 66 18 115/64 95 12/04/16 20:00 Nasal Cannula 2.00 12/04/16 20:00 67 12/04/16 16:00 98.6 72 20 107/56 95 12/04/16 15:36 93 Nasal Cannula 2.00 12/04/16 12:00 97.3 64 20 99/63 97 12/04/16 09:39 119 12/04/16 08:10 Nasal Cannula 2.00 12/04/16 08:00 98.4 137 18 134/72 95 12/04/16 07:20 97 Nasal Cannula 2.00 Physical Exam Hypothermic with temperature 91 sinus rhythm in the 80s blood pressure initially 72/33 despite dopamine at 20 g per KG per minute GENERAL: Thin male who is now orotracheally intubated. He is on no continuous sedation. SKIN: Warm and dry. HEAD: Atraumatic. Normocephalic. EYES: Pupils fixed ~ 5mm bilaterally. No scleral icterus. No injection or drainage. ENT: No nasal bleeding or discharge. Mucous membranes dry NECK: Trachea midline. +JVD CARDIOVASCULAR: Regular, rate in 80s. No murmurs rubs or gallops. RESPIRATORY: Diminished breath sounds on left with L basilar rales. No wheeze. Scar from prior sternotomy. GASTROINTESTINAL: Abdomen soft, scaphoid, nontender, no rebound or guarding. BS absent. MUSCULOSKELETAL: Extremities without clubbing, cyanosis, or edema. DP palpable bilaterally NEUROLOGICAL: Pupils fixed, no oculocephalics, no cough, no gag, no motor response to deep noxious stimuli, no response to Babinski. Laboratory Laboratory Tests Test 12/05/16 12/05/16 03:14 03:20 Blood Gas Puncture Site LT FEMORAL Blood Gas Patient Temperature 98.6 Blood Gas HCO3 19 Blood Gas Base Excess -8.0 Blood Gas Oxygen Saturation 98 Arterial Blood pH 7.19 Arterial Blood Partial 52 Pressure CO2 Arterial Blood Partial 370 Pressure O2 Arterial Blood Oxygen Content 14.2 Arterial Blood 0.6 Carboxyhemoglobin Arterial Blood Methemoglobin 1.0 Blood Gas Hemoglobin 9.6 Oxygen Delivery Device VENTILATOR Blood Gas Ventilator Setting AC 16/500/PEEP5 Blood Gas Inspired Oxygen 100 White Blood Count 14.7 Red Blood Count 3.54 Hemoglobin 10.0 Hematocrit 29.6 Mean Corpuscular Volume 83.6 Mean Corpuscular Hemoglobin 28.2 Mean Corpuscular Hemoglobin 33.7 Concent Red Cell Distribution Width 15.2 Platelet Count 210 Mean Platelet Volume 7.4 Prothrombin Time 51.4 Prothromb Time International 4.4 Ratio Sodium Level 128 Potassium Level 6.1 Chloride Level 85 Carbon Dioxide Level 20.8 Anion Gap 22 Blood Urea Nitrogen 28 Creatinine 1.94 Estimat Glomerular Filtration 34 Rate Random Glucose 173 Lactic Acid Level 12.9 Calcium Level 8.3 Phosphorus Level 8.9 Magnesium Level 2.1 Total Bilirubin 0.8 Aspartate Amino Transf 2558 (AST/SGOT) Alanine Aminotransferase 1466 (ALT/SGPT) Alkaline Phosphatase 178 Total Creatine Kinase 191 Creatine Kinase MB 1.6 Troponin I 0.04 B-Type Natriuretic Peptide 125 Total Protein 5.4 Albumin 2.1 Date/Time Procedure Status Source Growth 12/03/16 21:25 Aerobic Blood Culture - Preliminary Resulted Blood Peripheral NO GROWTH IN 1 DAY 12/03/16 21:25 Anaerobic Blood Culture - Preliminary Resulted Blood Peripheral NO GROWTH IN 1 DAY Result Diagram: 12/05/16 0320 12/05/16 0320 Assessment and Plan Assessment and Plan NEURO: Acute encephalopathy post cardiac arrest, probable Anoxia Anxiety On no continuous sedation. Followup CT brain. DC BuSpar Patient does not appear good candidate for induced therapeutic hypothermia due to asystolic arrest with severe hemodynamic instability and core temp 91 post arrest with multiorgan failure portending overall poor prognosis. RESP: Acute respiratory failure Remote history of tobacco abuse Aspiration pneumonia Pulmonary edema Intubated following cardiac arrest. Duoneb q 6 hours. Albuterol q2 hours prn Dr. Gray following CV: Asystolic cardiac arrest Cardiogenic shock CAD s/p 2vCABG, TV repair, Bioprosthetic AV Paroxysmal A fib. Lactic acidemia Art line and Flotrac for hemodynamic monitoring. On dopamine to 20 mcg/kg/min and Epinephrine 5 mcg/min added for refractory shock and CI now 2.7 SVV 11 SVI 39. Initiate levophed and attempt to wean dopamine off Serial lactic acid Hydrocortisone 100 mg IV q8 for refractory shock. Drips max concentrated. EKG with no ST elevation. Monitor serial cardiac markers/EKG. Etiology of cardiac arrest is not entirely clear, however may have been respiratory as patient had been complaining of SOB and had bradycardia and widened rhythm that can be seen in setting of hypercapnea. Nontheless, post- arrest bedside U/s shows severely reduced LV systolic function. He is anticoagulated with warfarin with INR 4.4 so PE unlikely. F/u Limited Echo Aspirin [address] negative GI: Transaminase elevation secondary to ischemic hepatopathy Insert a G-tube in place to low intermittent wall suction FEN/RENAL: Acute kidney injury with anuria Hyperkalemia Perez inserted. Monitor intake and output. Monitor electrolytes and address as indicated. Address hyperkalemia with calcium chloride 1 g IV, dextrose, insulin 10 units IV, bicarbonate 100 mEq, Kayexalate 30 g. Follow up BMP Started on bicarbonate drip with 150 mEq per liter at 50 mL per hour ID: Leukocytosis Community acquired pneumonia Aspiration Send blood cultures, sputum culture. U/a and culture if produces urine. Continue cefepime and azithromycin. Add flagyl to cover anaerobes. Vancomycin 1250 mg x1. HEME: Monitor CBC ENDO: Acute stress hyperglycemia without history of diabetes mellitus Low-dose insulin sliding scale at bedside glucose every 6 hours PROPH: Protonix 40 mg IV daily for stress ulcer prophylaxis. INR therapeutic at 4.4 and will provide DVT prophylaxis. Has been on warfarin. Place warfarin on hold ACCESS: Right IJ central venous line placed 3 #1, left femoral art line placed 3 #1 Patient with asystolic cardiac arrest, now in profound cardiogenic shock with decreased LV function. In multiorgan failure and poor neurologic exam. This is likely not survivable. updated. Discussed CODE STATUS. She states she does not want to change code status until she can discuss with his son and siblings. Patient is FULL CODE. Consult palliative care. CCT 88 minutes exclusive of separately billable procedures Abigail Gonzáles MD Dec 05, 2016 04:35
[2016-12-05] MEDS ORDERED: NOREPINEPHRINE-DEXTROSE DRIP 250 ML IV SCH (04:45)
--- NOTE | 2016-12-05 05:04 | RADRPT ---
EXAM DATE/TIME: 12/05/2016 03:32 [facility] COMPARISON: CHEST SINGLE AP, December 02, 2016, 8:39. INDICATIONS : Post central line placement. MEDICAL HISTORY : Myocardial infarction. SURGICAL HISTORY : CABG. ENCOUNTER: Subsequent ACUITY: 1 week PAIN SCORE: Non-responsive. LOCATION: Bilateral chest FINDINGS: 2 AP views of the chest. Endotracheal tube is in place with the tip 5 cm above the akira. Right IJ c entral venous catheter is in place with the tip in the distal superior vena cava. There is increased left mid to upper lung zone parenchymal opacity and increased right upper lung zone opacity. Increase d left basilar atelectasis also noted. No evidence of pneumothorax. Cardiomediastinal silhouette with in normal limits. CONCLUSION: Increased bilateral pulmonary opacity indicating infection versus asymmetric pulmonary edema. Leon Jimenes MD on December 05, 2016 at 5:01 Board Certified Radiologist. This report was verified electronically.
[2016-12-05] MEDS: CEFEPIME INJ 1,000 MG in SODIUM CHLORIDE 0.9% INJ 100 ML IV SCH (05:06)
[2016-12-05] MEDS ORDERED: EPINEPHrine (1:1000) INJ 2 MG in DEXTROSE 5% IN WATER INJ 248 ML IV SCH ×4 (05:45→11:30)
[2016-12-05] MEDS ORDERED: HYDROCORTISONE SOD SUCCINATE 100 MG VIAL IV PUSH SCH (06:00)
[2016-12-05] MEDS ORDERED: DIATRIZOATE MEGLUM/DIATRIZOATE SOD 9 ML CUP PO SCH (06:15)
[2016-12-05] MEDS: RESP: BUDESONIDE 0.5 MG/2 ML NEB NEB SCH (07:42)
[2016-12-05] MEDS: DOCUSATE SODIUM 100 MG CAP PO SCH (08:29)
[2016-12-05] MEDS: SODIUM CHLORIDE 0.9% FLUSH 5 ML FLUSH FLUSH SCH (08:29)
[2016-12-05] MEDS: PRAVASTATIN SOD 80 MG TAB PO SCH (08:29)
[2016-12-05] MEDS ORDERED: metroNIDAZOLE 500 MG INJ 100 ML IV SCH (09:00)
[2016-12-05] MEDS ORDERED: SENNOSIDES 8.6 MG TAB PO SCH (09:00)
[2016-12-05 09:43] LABS: BICARBONATE 18.4 MEQ/L (21.0-32.0); POTASSIUM 4.1 MEQ/L (3.5-5.1)
[2016-12-05 09:44] LABS: CREATINE KINASE 224 U/L (39-308)
[2016-12-05 09:59] LABS: CKMB 3.8 NG/ML (0.5-3.6)
[2016-12-05] MEDS ORDERED: VANCOMYCIN INJ 1,250 MG in SODIUM CHLOR 0.9% 250 ML INJ 250 ML IV ONE (10:00)
--- NOTE | 2016-12-05 10:07 | RADRPT ---
EXAM DATE/TIME: 12/05/2016 09:48 [facility] COMPARISON: No previous studies available for comparison. INDICATIONS : Altered mental status post code RADIATION DOSE: 68.25 CTDIvol (mGy) MEDICAL HISTORY : Cardiovascular disease. Hypertension. SURGICAL HISTORY : CABG ENCOUNTER: Initial ACUITY: 1 day PAIN SCALE: Non-responsive LOCATION: cranial TECHNIQUE: Multiple contiguous axial images were obtained of the head. Using automated exposure control and adj ustment of the mA and/or kV according to patient size, radiation dose was kept as low as reasonably a chievable to obtain optimal diagnostic quality images. FINDINGS: CEREBRUM: There is decreased density in the thalami and basal ganglia regions. The stewart-white junction is indis tinct. There is low density seen in the medial occipital lobes. The ventricles are normal for age. N o evidence of midline shift, mass lesion, hemorrhage. No extra-axial fluid collections are seen. POSTERIOR FOSSA: The cerebellum and brainstem are intact. The 4th ventricle is midline. The cerebellopontine angle i s unremarkable. EXTRACRANIAL: The visualized portion of the orbits is intact. SKULL: The calvaria is intact. No evidence of skull fracture. CONCLUSION: Areas of low density in the thalami and basal ganglia and some indistinctness of stewart-white junction concerning for global anoxia. There is some low density seen in the medial occipital lobes which can represent areas of infarction. Followup is recommended. Robert Salinas MD on December 05, 2016 at 10:01 Board Certified Radiologist. This report was verified electronically.
--- NOTE | 2016-12-05 10:49 | RADRPT ---
EXAM DATE/TIME: 12/05/2016 09:50 [facility] COMPARISON: No previous studies available for comparison. INDICATIONS: Abdominal pain ORAL CONTRAST: Prescribed oral contrast ingested. RADIATION DOSE: 15.24 CTDIvol (mGy) MEDICAL HISTORY: Cardiovascular disease. Hypertension. SURGICAL HISTORY: CABG ENCOUNTER: Initial ACUITY: 1 day PAIN SCALE: Non-responsive LOCATION: Abdomen TECHNIQUE: Volumetric scanning of the abdomen and pelvis was performed. Using automated exposure control and ad justment of the mA and/or kV according to patient size, radiation dose was kept as low as reasonably achievable to obtain optimal diagnostic quality images. FINDINGS: There is an NG tube in place. There is some mildly distended small bowel seen. A transition point i s not seen. The colon is not distended. There is contrast identified within the collapsed colon. T he liver, spleen, pancreas, adrenal glands and kidneys are normal for a non-contrast CT examination. There is a mild amount of ascites seen around the liver and spleen. There does appear to be distent ion of the gallbladder. There is some increased density in the central aspect of the gallbladder whi ch could either be related to prominent mucosa or potentially some stones. There is a moderate left pleural effusion and a mild right pleural effusion. There is accompanying a reas of atelectasis seen at the lung bases. There is a Perez catheter in the urinary bladder. The p elvic structures appear grossly intact. Patient is status post sternotomy. CONCLUSION: 1. Mildly distended small bowel. Some degree of mild obstruction or ileus needs to be considered al though there clearly is contrast seen throughout the non-distended colon. 2. Mild ascites seen around the liver and spleen. 3. Moderate left pleural effusion and a mild right pleural effusion with accompanying areas of atele ctasis. 4. Distended gallbladder with some increased density seen centrally related to either prominent muco sa or intraluminal material such as gallstones. Robert Salinas MD on December 05, 2016 at 10:27 Board Certified Radiologist. This report was verified electronically.
--- NOTE | 2016-12-05 11:01 | RADRPT ---
EXAM DATE/TIME: 12/05/2016 09:50 [facility] COMPARISON: CT THORAX W/O CONTRAST, September 12, 2016, 11:05. INDICATIONS: Evaluate pulmonary disease RADIATION DOSE: 15.24 CTDIvol (mGy) MEDICAL HISTORY: Cardiovascular disease. Hypertension. SURGICAL HISTORY: CABG ENCOUNTER: Initial ACUITY: 1 day PAIN SCALE: Non-responsive LOCATION: Chest TECHNIQUE: Volumetric scanning of the chest was performed. Using automated exposure control and adjustment of t he mA and/or kV according to patient size, radiation dose was kept as low as reasonably achievable to obtain optimal diagnostic quality images. FINDINGS: There are bilateral pleural effusions being moderate on the left and mild on the right. There is acc ompanying areas of atelectasis seen at the lung base being worse on the left. There is patchy areas of increas ed density seen in the upper lungs bilaterally being more prominent on the left. There is a mass like area seen in t he anterior left upper lobe measuring 1.6 cm. The right upper lobes appeared clear on the prior CT examination. Ther e is some prominence of the interstitium. There is some focal increased density at the posterior lateral right upper lobe and at the anterior right mid lung likely representing areas of consolidation or atelectasis. There is a 0.4 cm nodule seen at the anterior right middle lobe. The patient is status post sternotomy. Patient appears to have a prosthetic aortic valve in place. There is calcifications in the [place] coronary arteries. A significant pericardial effusion is not seen. The heart size is not enlarged. Significant adenopathy is not seen. There is an NG tube in place. There is some contrast seen within the esophagus throughout the chest. CONCLUSION: 1. Bilateral pleural effusions being moderate on the left and mild on the right with accompanying ar eas of atelectasis. 2. Patchy areas of consolidation seen in the upper lungs bilaterally which appear new. These are li prasanth inflammatory given they are new. There is a more focal 1.6 cm area seen in the left upper lobe and a small nodule measuring 4 mm in the right middle lobe. These areas can be followed with a non-c ontrast CT examination in six months. 3. Mildly distended esophagus filled with contrast. There is an NG tube in place. Robert Salinas MD on December 05, 2016 at 10:33 Board Certified Radiologist. This report was verified electronically.
[2016-12-05] MEDS ORDERED: DEXTROSE 5% IV SCH ×4 (11:23→11:30)
[2016-12-05] MEDS ORDERED: WATER IV SCH ×4 (11:23→11:30)
[2016-12-05] MEDS ORDERED: DOPAMINE IV SCH ×4 (11:23→11:30)
--- NOTE | 2016-12-05 12:52 | HHI.CCPN ---
Subjective Remarks/Hospital Course Lengthy discussion with his today. CT Head consistent with large area of brain injury, anoxic etiology most likely. Neurological exam with no corneal, gag, cough reflex. No response to pain. Pupils fixed at 5 mm. Objective Vital Signs Date Time Temp Pulse Resp B/P Pulse Ox O2 Delivery O2 Flow Rate FiO2 12/05/16 12:00 94.8 114 19 100 122/42 12/05/16 12:00 100 12/05/16 07:00 Mechanical Ventilator 12/04/16 20:00 2.00 Intake and Output 12/04/16 12/04/16 12/05/16 08:00 16:00 00:00 Intake Total 120 ml 480 ml 240 ml Output Total 250 ml 800 ml 200 ml Balance -130 ml -320 ml 40 ml Result Diagram: 12/05/16 0320 12/05/16 0910 Other Results Laboratory Tests Test 12/05/16 03:14 Blood Gas Puncture Site LT FEMORAL Blood Gas Patient Temperature 98.6 Blood Gas HCO3 19 mmol/L (22-26) Blood Gas Base Excess -8.0 mmol/L (-2-2) Blood Gas Oxygen Saturation 98 % (90-100) Arterial Blood pH 7.19 (7.380-7.420) Arterial Blood Partial 52 mmHg (38-42) Pressure CO2 Arterial Blood Partial 370 mmHg Pressure O2 (61-120) Arterial Blood Oxygen Content 14.2 Vol % (12.0-20.0) Arterial Blood 0.6 % (0-4) Carboxyhemoglobin Arterial Blood Methemoglobin 1.0 % (0-2) Blood Gas Hemoglobin 9.6 G/DL (12.0-16.0) Oxygen Delivery Device VENTILATOR Blood Gas Ventilator Setting AC 16/500/PEEP5 Blood Gas Inspired Oxygen 100 % Objective Remarks GENERAL: Thin male who is now orotracheally intubated. SKIN: Warm and dry. HEAD: Atraumatic. Normocephalic. EYES: Pupils fixed ~ 5mm bilaterally. No scleral icterus. No injection or drainage. Mucous membranes dry NECK: Trachea midline.Orally intubated. CARDIOVASCULAR: Regular, rate in 80s. No murmurs rubs or gallops. + JVD. RESPIRATORY: Scattered rhonchi. No wheeze. Scar from prior sternotomy. GASTROINTESTINAL: Abdomen soft, flat, nontender, no rebound or guarding. BS absent. MUSCULOSKELETAL: Extremities without clubbing, cyanosis, or edema. DP palpable bilaterally. Marginally perfused. NEUROLOGICAL: Pupils fixed, no oculocephalics, no cough, no gag, no motor response to deep noxious stimuli, no response to Babinski. No corneals, no DTRs. Procedures None. A/P Assessment and Plan NEURO: Acute encephalopathy post cardiac arrest, probable Anoxia Anxiety On no continuous sedation. Followup CT brain. DC BuSpar Patient does not appear good candidate for induced therapeutic hypothermia due to asystolic arrest with severe hemodynamic instability and core temp 91 post arrest with multiorgan failure portending overall poor prognosis. RESP: Acute respiratory failure Remote history of tobacco abuse Aspiration pneumonia Pulmonary edema Intubated following cardiac arrest. Duoneb q 6 hours. Albuterol q2 hours prn Dr. Gray following CV: Asystolic cardiac arrest Cardiogenic shock CAD s/p 2vCABG, TV repair, Bioprosthetic AV Paroxysmal A fib. Lactic acidemia Art line and Flotrac for hemodynamic monitoring. On dopamine to 20 mcg/kg/min and Epinephrine 5 mcg/min added for refractory shock and CI now 2.7 SVV 11 SVI 39. Initiate levophed and attempt to wean dopamine off Serial lactic acid Hydrocortisone 100 mg IV q8 for refractory shock. Drips max concentrated. EKG with no ST elevation. Monitor serial cardiac markers/EKG. Etiology of cardiac arrest is not entirely clear, however may have been respiratory as patient had been complaining of SOB and had bradycardia and widened rhythm that can be seen in setting of hypercapnea. Nontheless, post- arrest bedside U/s shows severely reduced LV systolic function. He is anticoagulated with warfarin with INR 4.4 so PE unlikely. F/u Limited Echo Aspirin [address] negative GI: Transaminase elevation secondary to ischemic hepatopathy Insert a G-tube in place to low intermittent wall suction FEN/RENAL: Acute kidney injury with anuria Hyperkalemia Perez inserted. Monitor intake and output. Monitor electrolytes and address as indicated. Address hyperkalemia with calcium chloride 1 g IV, dextrose, insulin 10 units IV, bicarbonate 100 mEq, Kayexalate 30 g. Follow up BMP Bicarbonate drip with 150 mEq per liter at 50 mL per hour ID: Leukocytosis Community acquired pneumonia Aspiration Send blood cultures, sputum culture. U/a and culture if produces urine. Continue cefepime and azithromycin. Flagyl to cover anaerobes. Vancomycin 1250 mg x1. HEME: Monitor CBC ENDO: Acute stress hyperglycemia without history of diabetes mellitus Low-dose insulin sliding scale at bedside glucose every 6 hours PROPH: Protonix 40 mg IV daily for stress ulcer prophylaxis. INR therapeutic at 4.4 and will provide DVT prophylaxis. Has been on warfarin. Place warfarin on hold ACCESS: Right IJ central venous line placed 3 #2, left femoral art line placed 3 #2 Patient with asystolic cardiac arrest, now in profound cardiogenic shock with decreased LV function. In multiorgan failure and poor neurologic exam. This is likely not survivable. updated. Discussed CODE STATUS. She does want to change code status, has discussed discuss with his son and siblings. Patient is DNR. 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 Patient's and his son from a former marriage both agree he would not like to live like this. They want DNR status and are discussing withdrawal, but for now her remains fuill code. Critical Care 55 mins Matteo Madrigal MD Dec 05, 2016 12:51
[2016-12-05] MEDS ORDERED: HYOSCYAMINE 0.125 MG TAB PO PRN (14:00)
[2016-12-05] MEDS ORDERED: HYDROmorphone HCL PF 2 MG/ML VIAL IV ONE ×2 (14:00→14:15)
[2016-12-05] MEDS ORDERED: LORazepam 2 MG/ML VIAL IV ONE ×2 (14:00→14:15)
--- NOTE | 2016-12-05 14:08 | PD.CONS ---
Consult Service Palliative Care Consult Requested By Dr. Eliecer MD. Primary Care Physician Liane Andino MD Reason for Consultation a. To assist with evaluation and management of symptoms including: shortness of breath. b. To assist medical decision maker(s) with: better understanding of current medical conditions; weighing benefits/burdens of medical treatment options; making medical treatment decisions. . (Jaycee Sneed) HPI History of Present Illness Mr. Dean is a 76-year-old male with a medical history of atrial fibrillation, CHF and CAD status post CABG and aortic valve replacement in July 2016, who presented to the emergency room on 12/02/16 endorsing shortness of breath, weight gain, chest discomfort and cough. Upon arrival, EKG showed atrial fibrillation with RVR at a rate of 136 bpm, Cardizem given. BNP 335. Chest x- ray showing left-sided pleural effusions. Patient was given Lasix in the ER for underlying CHF. Patient was admitted for further management of atrial fibrillation with RVR and CHF exacerbation. Cardiology -Dr. Steel consulted on 12/02/16 for evaluation of atrial fibrillation shortness of breath. Medication management recommended. Pulmonology -Dr. Gray consulted on 12/03/16 to evaluate for possible underlying COPD. Medical management and oxygen therapy recommended. Patient was reaching maximum medical improvement and discharged on 12/04/16; however, overnight he sustained an acute cardiac arrest or respiratory failure. CODE BLUE was called , patient was found on systole and fix pupils. Return to spontaneous circulation after 26 minutes of CPR where he received 5 doses of epi, 4 doses of bicarbonate, calcium and dextrose. He was found in profound shock postcardiac arrest with multiorgan failure. Patient was started on Levophed and epinephrine drip. Postcardiac arrest head CT showing areas of low density in the thalami and basal ganglia concerning for global anoxia. Chest CT showing bilateral pleural effusions and areas of consolidation in bilateral lungs. Palliative care has been consulted for further clarifications of goals of care in the setting of very poor prognosis for a meaningful recovery. Reviewed prior medical history and hospitalizations. Recent hospitalization from September 12, 2016 to September 15, 2016 secondary to pleural effusion. Hospitalization from September 03, 2016 to September 08, 2016 secondary to pleural effusion respiratory distress. Hospitalization from August 09, 2016 to August 27, 2016 secondary to UTI, sepsis and hyponatremia. At that time, patient was discharged to [facility]. Patient seen in ICU, he remains critically ill, intubated on mechanical ventilation. Unresponsive to tactile or verbal stimuli, not sedated. Not following any commands. Remains on dopamine and epinephrine drip as well as bicarbonate drip. Laboratory today showing WBC 14.7, Hgb 10.0, platelet count 210. Sodium 128, potassium 4.1, BUN/creatinine 33/2.47. Lactate acid continues to trend, today 16.6. Troponin 0.17, BNP 125. Met with patient's Veronika Dean at bedside. Family friend at bedside. tells me that patient was in a good state of health prior to his open heart surgery in July 2016. He was independent with all of his ADLs, driving, and required no assistance. As per , after CABG and aortic valve replacement, patient continued having medical complications and required multiple hospitalizations secondary to pleural effusion and respiratory distress. Patient required rehabilitation at the beginning of August, but was able to return home for independent living. Reviewed events leading to his hospitalization, clinical course and complications to include cardiac arrest. Reviewed poor prognosis for a meaningful recovery given anoxic brain injury and multisystem organ failure. tells me that bilingual patient support caseworker -Dr. Madrigal has provided medical update and discussed poor prognosis. At this time, family selecting to transition patient to comfort-directed care/withdrawal of life support given poor prognosis and known wishes. Veronika tells me that patient's 2 sons Darrell and Eric who are currently in [place], aware of patient 's critical condition and our fully supportive of goals of care. Spiritual services offered but declined. Ongoing emotional support and active listening provided. Case discussed with Dr. Manjarrez- palliative care. . Function/Cognitive Trajectory tells me that patient was in a good state of health prior to his open heart surgery in July 2016. He was independent with all of his ADLs, driving, and required no assistance. No cognitive decline reported. . (Jaycee Sneed) Review of Systems ROS Limitations: Clinical Condition, Unresponsive Constitutional: COMPLAINS OF: Fatigue, Weight gain Eyes: DENIES: Vision loss Ears, nose, mouth, throat: DENIES: Hearing loss, Oral lesions Respiratory: COMPLAINS OF: Apneas, Cough, Shortness of breath Cardiovascular: COMPLAINS OF: Chest pain, Dyspnea on Exertion, Lower Extremity Edema Gastrointestinal: DENIES: Abdominal pain, Constipation, Diarrhea, Nausea Integumentary: DENIES: Abnormal pigmentation Hematologic/Lymphatics: DENIES: Bruising Immunologic/Allergic: DENIES: Eczema Neurologic: DENIES: Abnormal gait Psychiatric: DENIES: Anxiety, Depression Other ROS: Limited ROS secondary to clinical condition, patient unresponsive, intubated on mechanical ventilation. ROS obtained from medical records, patient's and clinical observation. . (Jaycee Sneed) Past Family Social History Coded Allergies: Codeine (Verified Adverse Reaction, Severe, N/V, 12/02/16) Past Medical History Coronary artery disease, status post CABG and valve replacement in July 2016 Hypertension Atrial fibrillation BPH Dyslipidemia CHF GERD . Past Surgical History CABG and valve replacement in 2015. . Reported Medications Metoprolol Tartrate 25 Mg Tab 25 Mg PO Q12HR Tamsulosin (Tamsulosin HCl) 0.4 Mg Cap 0.4 Mg PO HS Zocor (Simvastatin) 40 Mg Tab 40 Mg PO DAILY Ativan (Lorazepam) 0.5 Mg Tab 0.5 Mg PO TID PRN Furosemide 20 Mg Tab 20 Mg PO BID Pantoprazole (Pantoprazole Sodium) 40 Mg Tab 40 Mg PO DAILY@06 Milk of Magnesia Liq (Magnesium Hydroxide) 400 Mg/5 Ml Susp 30 Ml PO DAILY PRN Dok (Docusate Sodium) 100 Mg Cap 100 Mg PO BID Probiotic (Lactobacillus Acidophilus) 1 Cap Cap 1 Cap PO DAILY Diltiazem (Diltiazem HCl) 30 Mg Tab 30 Mg PO TID Warfarin 4 Mg Tab 8 Mg PO DAILY Potassium Chloride ER (Potassium Chloride) 10 Meq Cap 10 Meq PO BID Buspirone (Buspirone HCl) 5 Mg Tab 5 Mg PO BID PRN Vitamin X08-[place]lsex Acid (Cobalamine Combinations) 500-400 Mcg Tab 1 Tab PO DAILY Finasteride 5 Mg Tab 5 Mg PO DAILY Aspir-Low (Aspirin) 81 Mg Tabdr Zantac (Ranitidine HCl) 150 Mg Tab 75 Mg PO BID Multi Vitamin (Multiple Vitamin) 1 Tab Tab 1 Tab PO DAILY . Current Medications Medications (Trade) Dose Ordered Sig/Serg Route Start Time Stop Time Status Last Admin (NS Flush) 2 ml UNSCH PRN FLUSH 12/02/16 10:30 (NS Flush) 2 ml BID FLUSH 12/02/16 21:00 12/05/16 08:29 (Coumadin) 8 mg DAILY@1600 PO 12/03/16 16:00 Hold 12/04/16 16:31 Pravastatin Sodium 80 mg 80 mg DAILY PO 12/03/16 09:00 12/05/16 08:29 Cefepime HCl 1000 mg/Sodium Chloride 100 ml @ 200 mls/hr Q8H IV 12/03/16 22:00 12/05/16 05:06 (Zithromax Inj/ NS 250 ml Inj) 250 ml @ 250 mls/hr Q24H IV 12/03/16 20:00 12/04/16 20:39 (Pill Splitter) 1 ea UNSCH PRN OTHER 12/04/16 09:00 (Colace) 100 mg BID PO 12/04/16 14:00 12/04/16 20:38 Sennosides 17.2 mg 17.2 mg DAILY PO 12/05/16 09:00 (Sodium Bicarbonate 8.4% Inj/Sterile Water For Inj) 1,000 ml @ 50 mls/hr Q20H IV 12/05/16 04:30 12/05/16 05:57 (D50w (Vial) Inj) 25 ml UNSCH PRN IV PUSH 12/05/16 04:30 (Glucagon Inj) 1 mg UNSCH PRN OTHER 12/05/16 04:30 Insulin Aspart 1 1 Q6H SQ 12/05/16 04:30 12/05/16 10:58 (Levophed-Dextrose Drip) 250 ml @ 0 mls/hr TITRATE IV 12/05/16 04:45 Terbutaline Sulfate 1 mg 1 mg UNSCH PRN SQ 12/05/16 04:45 Metronidazole 100 ml @ 100 mls/hr Q8H IV 12/05/16 09:00 12/05/16 10:58 Dopamine HCl 1600 mg/Dextrose 250 ml @ 0 mls/hr TITRATE IV 12/05/16 11:30 (Adrenalin (1:1000) Inj/D5W Inj) 250 ml @ 0 mls/hr TITRATE IV 12/05/16 11:30 Family History Patient reports a strong family history of heart disease and DM Brother x 2 and sister with previous stents and/or CABG 1 son with multiple sclerosis. . Substance Use Tobacco: Former smoker for 25 years. Quit 30 years ago. Alcohol: No alcohol use. Prescription med abuse: None reported. Illicits: None reported. . Psychosocial History Patient is originally from [place]. He is to [place]. Been for 2 years. Patient has 2 sons who reside [place], Darrell and Eric. 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 . Spiritual/Cultural Factors Yazidi of [place]. tells me that their documentation specialist has visited today. . (Jaycee Sneed) Living Will: Never completed Health Care Surrogate: Never completed Durable Power of Stand Up Comedian: Never completed Health Care Surrogate(s): As per [place] statute, healthcare decision-maker falls to patient's , Veronika Edouard. . Documented care wishes: No living will has been completed. . Family/friends goals: No code. DNR/DNI. Family electing to transition to comfort-directed care/ withdrawal life support given patient's poor prognosis for meaningful recovery and known wishes. . Ethical and Legal Issues No living will has been completed. . (Jaycee Sneed) Physical Exam Vital Signs Date Time Temp Pulse Resp B/P Pulse Ox O2 Delivery O2 Flow Rate FiO2 12/05/16 12:00 94.8 114 19 100 122/42 12/05/16 12:00 100 12/05/16 12:00 116 12/05/16 11:42 100 70 12/05/16 10:29 100 100 12/05/16 10:00 112 12/05/16 08:00 91.8 106 16 99 114/40 12/05/16 08:00 105 12/05/16 08:00 100 12/05/16 08:00 108 114/40 12/05/16 07:42 99 80 12/05/16 07:00 99 Mechanical Ventilator 100 12/05/16 06:42 95 116/33 12/05/16 06:00 104 12/05/16 04:17 100 100 12/05/16 04:00 93.1 70 16 72/33 100 12/05/16 04:00 124 12/05/16 03:30 100 12/05/16 03:00 118 12/05/16 02:50 100 100 12/05/16 00:28 97.7 52 18 100/57 95 12/04/16 20:00 98.0 66 18 115/64 95 12/04/16 20:00 Nasal Cannula 2.00 12/04/16 20:00 67 12/04/16 16:00 98.6 72 20 107/56 95 12/04/16 15:36 93 Nasal Cannula 2.00 12/04/16 12/05/16 19:00 07:00 Intake Total 480 ml 662 ml Output Total 800 ml 300 ml Balance -320 ml 362 ml Intake Oral 480 ml 240 ml IV Total 422 ml Output Urine Total 800 ml 200 ml Gastric Drainage Total 100 ml # Bowel Movements 1 0 Exam CONSTITUTIONAL/GENERAL: This is an adequately nourished patient, in no apparent distress. Intubated on mechanical ventilation. TUBES/LINES/DRAINS: ETT, OG, Perez catheter, right IJ central line, PIV's, SCDs. SKIN: No jaundice, rashes, or lesions. Scatter ecchymoses on upper extremities. No wounds seen anteriorly. Skin temperature appropriate. Not diaphoretic. HEAD: Atraumatic. Normocephalic. EYES: Pupils dilated and fixed. No injection or drainage. ENT: Unable to evaluate hearing secondary to clinical condition.. Nose without bleeding or purulent drainage. NECK: Trachea midline. Supple. CARDIOVASCULAR: Tachycardic with heart rate in the low 110s. Irregular rate and rhythm. RESPIRATORY/CHEST: Symmetric, unlabored respirations. Clear, diminished to auscultation. Intubated on mechanical ventilation. GASTROINTESTINAL: Abdomen soft, non-tender, nondistended. Bowel sounds present. GENITOURINARY: Without palpable bladder distension. Perez catheter in place. MUSCULOSKELETAL: Extremities without clubbing, cyanosis, or edema. Mottling of bilateral lower extremities noted. NEUROLOGICAL: Comatose, fixed pupils. Not sedated. Unresponsive to tactile or verbal stimuli. PSYCHIATRIC: Able to assess secondary to clinical condition. . (Jaycee Sneed) Diagnostic Tests Laboratory Laboratory Tests Test 12/03/16 12/03/16 12/05/16 12/05/16 06:55 19:40 03:14 03:20 White Blood Count 6.5 TH/MM3 14.7 TH/MM3 (4.0-11.0) (4.0-11.0) Red Blood Count 3.65 MIL/MM3 3.54 MIL/MM3 (4.50-5.90) (4.50-5.90) Hemoglobin 10.3 GM/DL 10.0 GM/DL (13.0-17.0) (13.0-17.0) Hematocrit 30.0 % 29.6 % (39.0-51.0) (39.0-51.0) Mean Corpuscular Volume 82.1 FL 83.6 FL (80.0-100.0) (80.0-100.0) Mean Corpuscular Hemoglobin 28.3 PG 28.2 PG (27.0-34.0) (27.0-34.0) Mean Corpuscular Hemoglobin 34.4 % 33.7 % Concent (32.0-36.0) (32.0-36.0) Red Cell Distribution Width 15.6 % 15.2 % (11.6-17.2) (11.6-17.2) Platelet Count 226 TH/MM3 210 TH/MM3 (150-450) (150-450) Mean Platelet Volume 6.6 FL 7.4 FL (7.0-11.0) (7.0-11.0) Neutrophils (%) (Auto) 63.2 % (16.0-70.0) Lymphocytes (%) (Auto) 18.0 % (9.0-44.0) Monocytes (%) (Auto) 14.0 % (0.0-8.0) Eosinophils (%) (Auto) 4.5 % (0.0-4.0) Basophils (%) (Auto) 0.3 % (0.0-2.0) Neutrophils # (Auto) 4.1 TH/MM3 (1.8-7.7) Lymphocytes # (Auto) 1.2 TH/MM3 (1.0-4.8) Monocytes # (Auto) 0.9 TH/MM3 (0-0.9) Eosinophils # (Auto) 0.3 TH/MM3 (0-0.4) Basophils # (Auto) 0.0 TH/MM3 (0-0.2) CBC Comment DIFF FINAL Differential Comment Sodium Level 129 MEQ/L 128 MEQ/L (136-145) (136-145) Potassium Level 3.6 MEQ/L 6.1 MEQ/L (3.5-5.1) (3.5-5.1) Chloride Level 89 MEQ/L 85 MEQ/L (98-107) (98-107) Carbon Dioxide Level 29.4 MEQ/L 20.8 MEQ/L (21.0-32.0) (21.0-32.0) Anion Gap 11 MEQ/L (5-15) 22 MEQ/L (5-15) Blood Urea Nitrogen 12 MG/DL (7-18) 28 MG/DL (7-18) Creatinine 0.69 MG/DL 1.94 MG/DL (0.60-1.30) (0.60-1.30) Estimat Glomerular Filtration 111 ML/MIN 34 ML/MIN (>89) Rate (>89) Random Glucose 99 MG/DL 173 MG/DL (74-106) (74-106) Calcium Level 8.3 MG/DL 8.3 MG/DL (8.5-10.1) (8.5-10.1) Blood Gas Puncture Site LT RADIAL LT FEMORAL Blood Gas Patient Temperature 98.6 98.6 Blood Gas HCO3 28 mmol/L 19 mmol/L (22-26) (22-26) Blood Gas Base Excess 5.0 mmol/L -8.0 mmol/L (-2-2) (-2-2) Blood Gas Oxygen Saturation 87 % (90-100) 98 % (90-100) Arterial Blood pH 7.49 7.19 (7.380-7.420) (7.380-7.420) Arterial Blood Partial 37 mmHg (38-42) 52 mmHg (38-42) Pressure CO2 Arterial Blood Partial 55 mmHg 370 mmHg Pressure O2 (61-120) (61-120) Arterial Blood Oxygen Content 12.4 Vol % 14.2 Vol % (12.0-20.0) (12.0-20.0) Arterial Blood 1.6 % (0-4) 0.6 % (0-4) Carboxyhemoglobin Arterial Blood Methemoglobin 0.7 % (0-2) 1.0 % (0-2) Blood Gas Hemoglobin 10.1 G/DL 9.6 G/DL (12.0-16.0) (12.0-16.0) Oxygen Delivery Device ROOM AIR VENTILATOR Blood Gas Inspired Oxygen 21 % 100 % Blood Gas Ventilator Setting AC 16/500/PEEP5 Prothrombin Time 51.4 SEC (9.8-11.6) Prothromb Time International 4.4 RATIO Ratio Lactic Acid Level 12.9 mmol/L (0.4-2.0) Phosphorus Level 8.9 MG/DL (2.5-4.9) Magnesium Level 2.1 MG/DL (1.5-2.5) Total Bilirubin 0.8 MG/DL (0.2-1.0) Aspartate Amino Transf 2558 U/L (AST/SGOT) (15-37) Alanine Aminotransferase 1466 U/L (ALT/SGPT) (12-78) Alkaline Phosphatase 178 U/L (45-117) Total Creatine Kinase 191 U/L (39-308) Creatine Kinase MB 1.6 NG/ML (0.5-3.6) Troponin I 0.04 NG/ML (0.02-0.05) B-Type Natriuretic Peptide 125 PG/ML (0-100) Total Protein 5.4 GM/DL (6.4-8.2) Albumin 2.1 GM/DL (3.4-5.0) Test 12/05/16 12/05/16 12/05/16 05:04 09:10 11:15 Lactic Acid Level 12.4 mmol/L 16.6 mmol/L (0.4-2.0) (0.4-2.0) Sodium Level 128 MEQ/L (136-145) Potassium Level 4.1 MEQ/L (3.5-5.1) Chloride Level 83 MEQ/L (98-107) Carbon Dioxide Level 18.4 MEQ/L (21.0-32.0) Anion Gap 27 MEQ/L (5-15) Blood Urea Nitrogen 33 MG/DL (7-18) Creatinine 2.47 MG/DL (0.60-1.30) Estimat Glomerular Filtration 26 ML/MIN (>89) Rate Random Glucose 215 MG/DL (74-106) Calcium Level 8.6 MG/DL (8.5-10.1) Total Creatine Kinase 224 U/L (39-308) Creatine Kinase MB 3.8 NG/ML (0.5-3.6) Troponin I 0.17 NG/ML (0.02-0.05) (Jaycee SneedP) Result Diagram: 12/05/16 0320 12/05/16 0910 Microbiology Microbiology Date/Time Procedure Status Source Growth 12/03/16 21:20 Aerobic Blood Culture - Preliminary Resulted Blood Peripheral NO GROWTH IN 2 DAYS 12/03/16 21:20 Anaerobic Blood Culture - Preliminary Resulted Blood Peripheral NO GROWTH IN 2 DAYS 12/03/16 21:25 Aerobic Blood Culture - Preliminary Resulted Blood Peripheral NO GROWTH IN 2 DAYS 12/03/16 21:25 Anaerobic Blood Culture - Preliminary Resulted Blood Peripheral NO GROWTH IN 2 DAYS 12/05/16 04:50 Aerobic Blood Culture Received Blood Peripheral Pending 12/05/16 04:50 Anaerobic Blood Culture Received Blood Peripheral Pending 12/05/16 05:04 Aerobic Blood Culture Received Blood Peripheral Pending 12/05/16 05:04 Anaerobic Blood Culture Received Blood Peripheral Pending Imaging Last Impressions Head CT 12/05/16 0000 Signed Impressions: Service Date/Time: Monday, December 05, 2016 09:48 - CONCLUSION: Areas of low density in the thalami and basal ganglia and some indistinctness of stewart-white junction concerning for global anoxia. There is some low density seen in the medial occipital lobes which can represent areas of infarction. Followup is recommended. Robert Salinas MD Chest X-Ray 12/05/16 0000 Signed Impressions: Service Date/Time: Monday, December 05, 2016 03:32 - CONCLUSION: Increased bilateral pulmonary opacity indicating infection versus asymmetric pulmonary edema. Leon Jimenes MD Chest CT 12/05/16 0000 Signed Impressions: Service Date/Time: Monday, December 05, 2016 09:50 - CONCLUSION: 1. Bilateral pleural effusions being moderate on the left and mild on the right with accompanying areas of atelectasis. 2. Patchy areas of consolidation seen in the upper lungs bilaterally which appear new. These are likely inflammatory given they are new. There is a more focal 1.6 cm area seen in the left upper lobe and a small nodule measuring 4 mm in the right middle lobe. These areas can be followed with a non-contrast CT examination in six months. 3. Mildly distended esophagus filled with contrast. There is an NG tube in place. Robert Salinas MD Abdomen/Pelvis CT 12/05/16 0000 Signed Impressions: Service Date/Time: Monday, December 05, 2016 09:50 - CONCLUSION: 1. Mildly distended small bowel. Some degree of mild obstruction or ileus needs to be considered although there clearly is contrast seen throughout the non- distended colon. 2. Mild ascites seen around the liver and spleen. 3. Moderate left pleural effusion and a mild right pleural effusion with accompanying areas of atelectasis. 4. Distended gallbladder with some increased density seen centrally related to either prominent mucosa or intraluminal material such as gallstones. Robert Salinas MD Procedures * 12/05/16 -intubation * 12/05/16 -right IJ central line placement * 12/05/16 -left femoral arterial catheter placement . (Jaycee Sneed) Patient/Family Conference Present at Family Conference: Patient's Veronika Vazquez Family Conference Time (mins): 40 Family Conference Location: Bedside Issues Discussed: * Palliative care role, purpose, approach * Additional medical, psychosocial, and spiritual history * Patients general health, functional status, and cognitive changes in the months leading up to the current hospitalization * Family understanding of the current medical problems to include anoxic brain injury secondary to cardiac arrest and multisystem organ failure * Family understanding of prognosis -very poor for a meaningful recovery. * Patients goals of care as best understood from advance directives and/or conversations and/or values * Current medical treatment options and benefits/burdens of those options * Likely scenarios comparing ongoing aggressive care with a transition to comfort measures only * Questions answered to the best of my ability * Palliative care contact information provided . (Jaycee Sneed) Assessment and Plan Disease Oriented Problem List: (1) Anoxic brain injury (2) Cardiac arrest (3) CHF (congestive heart failure) (4) EDGARDO (acute kidney injury) Symptom Scale: (1) Shortness of breath 0-10 Scale: Unable to quantify Comment: Remains intubated on mechanical ventilation. Pertinent Non-Medical Issues Psychosocial: Originally from [place], now retired. Former railroad engineer. . Has 2 children. Spiritual: Yazidi of [place]. Legal: No living will completed. Ethical issues impacting care: No living will completed. . Important Contacts Veronika Vazquez [phone]. . Prognosis Mr. Dean is an 76-year-old male with a past medical history of CAD status post CABG in July 2016. Multiple complications with hospitalizations since leading to these current hospitalization. Reported progressive decline requiring rehabilitation in August 2016. Sustained acute VA overnight resulting in anoxic brain injury. Patient now with multisystem organ failure. Very poor prognosis for a meaningful recovery. Family electing to transition to comfort-directed care given poor prognosis and known wishes. Patient's life expectancy of hours to days if illness runs its natural course. . Code Status: No Code Plan * CODE STATUS: No code. DNR/DNI. * HEALTHCARE DECISION-MAKING: As per [place] statute, healthcare decision-maker falls to patient's , Veronika Edouard. * GOALS OF CARE: Family electing to transition patient to comfort-directed care/ withdrawal life support and allow natural given patient's poor prognosis for a meaningful recovery and known wishes. * Exhibits B and C have been signed. * SYMPTOMS: Comfort-directed medications added. * Anticipatory guidance provided to patient's family. * Spiritual services offered but declined. * Case has been discussed with Dr. Campbell and Dr. Manjarrez -[facility]. * Ongoing emotional support and active listening provided. * Palliative care will continue to follow-up for symptom management and emotional support. . (aJycee Sneed) Time Spent Total Floor Time (mins): 92 (Total time to include review and summarization of available medical records to include prior hospitalizations, physical exam, goals of care conversation with patient's , and case discussion with Dr. Campbell and Dr. Manjarrez.) >50% Counseling/Coord of Care: Yes (Jaycee Sneed) Thank you for the opportunity to participate in the care of Mr. Vazquez. (Jaycee Sneed) Attestation To help prompt me to consider important information that might be impacting today's encounter and assessment, information from prior notes written by myself or my colleagues may have been "brought forward" into today's note. My signature on this note, however, is an attestation that I personally performed the exam, history, and/or decision-making noted today, and, unless otherwise indicated, the interactions with patient, family, and staff as well as the review of records all occurred today. I also attest that the listed assessment and stated plan reflect my best clinical judgment today based on the combination of historical information, prior notes, and today's exam/ interactions. When time spent is documented, it refers only to time spent today by the signer, or if indicated, combined time spent today by collaborating physician/nurse practitioner. (Jaycee Sneed) Collaborating MD Comments Chart reviewed. Case discussed with palliative care GOLF CART REPAIRER. Above GOLF CART REPAIRER note reviewed and I concur. . (Kolby Manjarrez MD) Jaycee Sneed Dec 05, 2016 14:08 Kolby Manjarrez MD Dec 12, 2016 12:30
[2016-12-05] MEDS ORDERED: ACETAMINOPHEN 650 MG SUPP PR PRN (14:30)
[2016-12-05] MEDS ORDERED: LORazepam 2 MG/ML VIAL IVS PRN (14:30)
[2016-12-05] MEDS ORDERED: LORazepam 2 MG/ML VIAL IV PRN ×2 (14:30)
[2016-12-05] MEDS ORDERED: FUROSEMIDE 20 MG/2 ML VIAL IV PRN (14:30)
[2016-12-05] MEDS ORDERED: HYDROmorphone HCL PF 2 MG/ML VIAL IV PRN ×2 (14:30)
[2016-12-05] MEDS ORDERED: BISACODYL 10 MG SUPP PR PRN (14:30)
[2016-12-05] MEDS ORDERED: LORazepam 2 MG/ML VIAL IV SCH (16:00)
[2016-12-05] MEDS ORDERED: DEXTROSE 50% IN WATER 50 ML SYRINGE IV ONE (16:41)
[2016-12-05] MEDS ORDERED: SODIUM BICARBONATE 8.4% INJ 50 MEQ/50 ML SYR IV ONE (16:41)
[2016-12-05] MEDS ORDERED: EPINEPHrine HCL (1:10,000) 1 MG/10 ML SYRINGE IV ONE (16:41)
[2016-12-05] MEDS ORDERED: DOPamine INJ PREMIX 500 ML IV ONE (16:41)
[2016-12-05] MEDS ORDERED: CALCIUM CHLORIDE 10% SOLN 1 GRAM/10 ML SYR IV ONE (16:41)
--- NOTE | 2016-12-05 17:52 | ECHLIM ---
Study Study Date:12/05/2016 STUDY CONCLUSIONS SUMMARY - Left ventricle: The cavity size was normal. Wall thickness was increased in a pattern of mild LVH. Systolic function was normal. The estimated ejection fraction was 60%. Wall motion was normal; there were no regional wall motion abnormalities. - Aortic valve: Calcified annulus. Trileaflet; normal thickness leaflets. - Mitral valve: Calcified annulus. Mild regurgitation. - Right ventricle: The cavity size was dilated. Wall thickness was normal. RV dysfunction. - Right atrium: The atrium was dilated. - Tricuspid valve: Mild-moderate regurgitation. - Pulmonary arteries: Systolic pressure was mildly increased. PA peak pressure: 46mm Hg (S). If LV function is below 40, please consider prescribing an ACEI or ARB or document rationale for non-use. PROCEDURE DATA STUDY STATUS: Elective. Procedure: Transthoracic echocardiography. Image quality was good. Scanning was performed from the parasternal, apical, and subcostal acoustic windows. Study completion: The patient tolerated the procedure well. Transthoracic echocardiography. M-mode, complete 2D, complete spectral Doppler, and color Doppler. Height: Height: 75in. Weight: Weight: 157.7lb. Body mass index: BMI: 19.7kg/m^2. Body surface area: BSA: 1.99m^2. Patient status: Inpatient. CARDIAC ANATOMY LEFT VENTRICLE: The cavity size was normal. Wall thickness was increased in a pattern of mild LVH. Systolic function was normal. The estimated ejection fraction was 60%. Wall motion was normal; there were no regional wall motion abnormalities. AORTIC VALVE: Calcified annulus. Trileaflet; normal thickness leaflets. Doppler: Transvalvular velocity was within the normal range. There was no stenosis. No regurgitation. AORTA: Aortic root: The aortic root was normal in size. MITRAL VALVE: Calcified annulus. Doppler: Transvalvular velocity was within the normal range. There was no evidence for stenosis. Mild regurgitation. Valve area by pressure half-time: 2.24cm^2. Indexed valve area by pressure half-time: 1.13cm^2/m^2. Mean gradient: 4mm Hg (D). Peak gradient: 8mm Hg (D). LEFT ATRIUM: The atrium was normal in size. RIGHT VENTRICLE: The cavity size was dilated. Wall thickness was normal. RV dysfunction. PULMONIC VALVE: Doppler: Transvalvular velocity was within the normal range. There was no evidence for stenosis. No regurgitation. TRICUSPID VALVE: Structurally normal valve. Doppler: Transvalvular velocity was within the normal range. Mild-moderate regurgitation. PULMONARY ARTERY: The main pulmonary artery was normal-sized. Systolic pressure was mildly increased. RIGHT ATRIUM: The atrium was dilated. PERICARDIUM: There was no pericardial effusion. SYSTEMIC VEINS: Inferior vena cava: The vessel was normal in size. Patient weight: 157.7lb _Ejection fraction:_ 65-75% _Fractional shortening:_ 32% up to 5Kg 5-11.5Kg 11.6-22.9Kg 23-45Kg 45-57Kg Aortic Root 7-13 <17 13-22 17-27 17-27 LA diam 6-13 <23 24-38 33-47 37-40 RVID 10-17 7-15 7-15 7-18 8-17 LVIDd 12-22 <32 24-38 33-47 37-40 LVPW 2-4 3-6 5-7 6-8 7-8 IVS 2-4 3-6 5-7 6-8 7-8 BASIC MEASUREMENTS ADULT NORMAL Left ventricle LV internal dimension, ED, chordal *31.7 mm 43-52 level, PLAX LV internal dimension, ES, chordal 23.1 mm 23-38 level, PLAX Fractional shortening, chordal level, *27 % >29 PLAX LV posterior wall thickness, ED 12 mm IVS/LVPW ratio, ED 1 <1.3 Ventricular septum Septal thickness, ED 12 mm Left atrium Anterior-posterior dimension 36 mm Anterior-posterior dimension index 1.81 cm/m^2 <2.2 DOPPLER MEASUREMENTS ADULT NORMAL Main pulmonary artery Pressure, S *46 mm Hg =30 Aortic valve VTI, S 30.4 cm Mitral valve Mean velocity, D 86.4 cm/s Pressure half-time 98 ms Mean gradient, D 4 mm Hg Peak gradient, D 8 mm Hg Valve area, pressure half-time 2.24 cm^2 Valve area index, pressure half-time 1.13 cm^2/m^2 Tricuspid valve Regurgitant peak velocity 278 cm/s Peak RV-RA gradient, S 31 mm Hg Maximal regurgitant velocity 278 cm/s Right ventricle RV pressure, S *46 mm Hg <30 LEGEND: Mean values are shown as u=mean value. Asterisk (*) shaikh values outside specified normal range. Prepared and signed by Zuly Mayers [id number]
--- NOTE | 2016-12-05 20:41 | EKG ---
Date Performed: 12/05/2016 Time Performed: 10:55:47 PTAGE: 76 years EKG: ATRIAL FIBRILLATION WITH RAPID VENTRICULAR RESPONSE RIGHT BUNDLE BRANCH BLOCK ABNORMAL ECG PREVIOUS TRACING : 12/02/2016 08.13 Compared to prior tracing no significant change DOCTOR: Zuly Mayers Interpretating Date/Time 12/05/2016 20:40:26
[2016-12-06 07:14] LABS: NUMBER OF ARTERIAL PUNCTURES 1
--- NOTE | 2016-12-14 08:32 | RSPPFT ---
DATE OF PROCEDURE: 12/04/16 COMMENTS: Spirometry shows FVC of 2.1 at 43% of predicted, FEV1 of 0.9 at 23%, FEV1/FVC ratio is decreased. Flow is decreased at FEF 25-75. There is no response after bronchodilator treatment. Lung volumes show flow volume loop indicates an obstructive pattern. IMPRESSION: 1. Severe obstructive lung disease. 2. No response after bronchodilator treatment.
== END 2016-12-05 16:42 | disposition expired | DRG 208 ==
LOC: PHED 08:08 → PHEDA 10:15 → PHEDH 14:12 → N04A 12-03 → N03A 12-05 02:46
PROVIDERS: ADMIT Emergency Medicine; ATTEND Emergency Medicine
PROC: 0T9B70Z Drainage of Bladder with Drainage Device, Via Natural or Artificial Opening (ICD-10-PCS; principal; 2016-12-05)
PROC: 5A1935Z Respiratory Ventilation, Less than 24 Consecutive Hours (ICD-10-PCS; 2016-12-05)
PROC: 04HY32Z Insertion of Monitoring Device into Lower Artery, Percutaneous Approach (ICD-10-PCS; 2016-12-05)
PROC: 0BH17EZ Insertion of Endotracheal Airway into Trachea, Via Natural or Artificial Opening (ICD-10-PCS; 2016-12-05)
PROC: 5A12012 Performance of Cardiac Output, Single, Manual (ICD-10-PCS; 2016-12-05)
PROC: 05HM33Z Insertion of Infusion Device into Right Internal Jugular Vein, Percutaneous Approach (ICD-10-PCS; 2016-12-05)
DX: J18.9 Pneumonia, unspecified organism (principal); J96.01 Acute respiratory failure with hypoxia; R57.0 Cardiogenic shock; I48.0 Paroxysmal atrial fibrillation; R00.1 Bradycardia, unspecified; G93.1 Anoxic brain damage, not elsewhere classified; I47.2 Ventricular tachycardia; N17.9 Acute kidney failure, unspecified; E87.1 Hypo-osmolality and hyponatremia; I50.32 Chronic diastolic (congestive) heart failure; J44.1 Chronic obstructive pulmonary disease with (acute) exacerbation; J98.11 Atelectasis; J69.0 Pneumonitis due to inhalation of food and vomit; D64.9 Anemia, unspecified; Z95.2 Presence of prosthetic heart valve; I10 Essential (primary) hypertension; Z95.1 Presence of aortocoronary bypass graft; I25.10 Atherosclerotic heart disease of native coronary artery without angina pectoris; N41.1 Chronic prostatitis; E78.00 Pure hypercholesterolemia, unspecified; Z79.01 Long term (current) use of anticoagulants; N40.0 Benign prostatic hyperplasia without lower urinary tract symptoms; E78.5 Hyperlipidemia, unspecified; K21.9 Gastro-esophageal reflux disease without esophagitis; Z87.891 Personal history of nicotine dependence; I45.10 Unspecified right bundle-branch block; I46.9 Cardiac arrest, cause unspecified; F41.9 Anxiety disorder, unspecified; R74.0 Nonspecific elevation of levels of transaminase and lactic acid dehydrogenase [LDH]; E87.5 Hyperkalemia; Z51.5 Encounter for palliative care; R73.09 Other abnormal glucose; Z66 Do not resuscitate
CPT/HCPCS: 31500; 36556; 36600; 70450; 71010; 71250; 74176; 76937; 80048; 80053; 82550; 82552; 82805; 82948; 83605; 83735; 83880; 84100; 84484; 85025; 85027; 85610; 85730; 87040; 92950; 93005; 93308; 94002; 94060; 94150; 94620; 94640; 94664; 96365; 96375; 96376; J0171; J0456; J0692; J1170; J1265; J1720; J1815; J1940; J2060; J3370; J7050; J7060; J7626; J7644; Q9963